=== PATIENT | female | born 1945 | race Caucasian/White ===

== ENCOUNTER 2016-10-12 07:16 | Emergency (ER) | payer BC, OTHER ==
[~2016-10-12] VITALS: Ht 160 cm; Wt 76.7 kg
[~2016-10-12 07:16] MED LIST: CALC-354 PO; CHOL100010 PO; DEXT1TAB15 PO; DPH/ PO; ESCI10TA17 PO; HYDR0.5T PO; HYDR10TA52 PO; IMD/2 PO; IPRA1AER2 INH; IRON INFUSIONS IV; LEVO150T PO; LIDO5DIS10 TOP; LISI-729 PO; MISCCAP80 PO; POTA10TA PO; [UNRECOGNIZED DRUG - OTHER] PO
--- NOTE | 2016-10-12 07:39 | EMERGENCY ROOM VISIT NOTE ---
ED Visit Note First contact with patient: 07:28 I have seen and examined this patient with Anastasia Castro and generally agree with the treatment plan as discussed. Problem List Medical Problems: (1) Abdominal hernia Status: Chronic (2) Romain's disease Status: Chronic (3) Asthma Status: Chronic (4) Benign hypertension Status: Chronic (5) Bilateral cellulitis of lower leg Status: Chronic (6) CELLULITIS NOS Status: Chronic (7) ILEOSTOMY STATUS Status: Chronic (8) Lymphedema of left lower extremity Status: Chronic (9) Lymphedema of right lower extremity Status: Chronic (10) MINERALOCORTICOID DEFICIENCY Status: Chronic Current/Historical Medications Scheduled Calcium Carbonate-Cholecalcife (Caltrate 600+D), 1 TAB PO BID Cholecalciferol (Vitamin D), 2,000 INTER.UNIT PO Q12 Dextroamphetamine Sulfate (Dextroamphetamine Sulfate), 10 MG PO TID Escitalopram (Lexapro), 20 MG PO QPM Escitalopram (Lexapro), 10 MG PO QAM Hydrocortisone (Cortef), 20 MG PO QAM Hydrocortisone (Cortef), 10 MG PO QPM Hydroxychloroquine Sulfate (Plaquenil), 400 MG PO HS Ipratropium-Albuterol (Combivent Respimat), 1 PUFFS INH QID L-Methylfolate W/ Vitamin B6-V (Foltx), 1 TAB PO DAILY Levothyroxine Sodium (Synthroid), 175 MCG PO QAM Lidocaine (Lidoderm Patch 5% Patch), 2 PATCH TOP DAILY Lisinopril (Zestril), Unknown Dose PO DAILY Potassium Chloride (K-Tabs), 20 MEQ PO BID Probiotic Product (Probiotic), 1 CAP PO DAILY [IV iron infusions], Unknown Dose IV WK Scheduled PRN Diphenoxylate W/ Atropine (Lomotil), 1-2 TAB PO 4-6 X PRN for Diarrhea Loperamide Hcl (Imodium), 4 MG PO TID PRN for Diarrhea Allergies Coded Allergies: Sulfa Antibiotics (Verified Allergy, Mild, RASH, 01/29/16) UNKNOWN IF THIS IS TO ANITBIOTICS OR OTHER SULFA Clavulanic Acid (Verified Adverse Reaction, Intermediate, nausea & vomiting, 01/29/16) Amoxicillin (Verified Adverse Reaction, Mild, gi upset, 02/10/16) Erythromycin (Verified Adverse Reaction, Mild, gi upset, 02/10/16) Vital Signs Date Time Temp Pulse Resp B/P Pulse Ox O2 Delivery O2 Flow Rate FiO2 10/12/16 07:23 36.5 97 17 147/64 100 Room Air Departure Information Referrals Con Tapia M.D. (PCP) Patient Instructions My [facility]
[2016-10-12] MEDS ORDERED: LISI-725 PO (08:15)
[2016-10-12] MEDS ORDERED: LEVO150T PO (08:15)
[2016-10-12] MEDS ORDERED: HYDR200T5 PO (08:15)
[2016-10-12] MEDS ORDERED: LEVO175T PO (08:15)
[2016-10-12 08:24] LABS: BASO % 0.5 %; BASO ABS # 0.03 K/uL (0-0.2); COMPLETE YES; HEMATOCRIT 30.4 % (37-47); IG% 0.2 %; LYMPH % 31.5 %; LYMPH ABS # 1.78 K/uL (1.2-3.4); MEAN CELL VOLUME 91.3 fL (80-100); MEAN CORPUSCULAR HEMOGLOBIN 31.2 pg (25-34); MEAN CORPUSCULAR HGB CONC 34.2 g/dl (32-36); MEAN PLATELET VOLUME 8.8 fL (7.4-10.4); MONO % 13.5 %; NEUT % 51.3 %; PLATELET COUNT 459 K/uL (130-400); RED BLOOD COUNT 3.33 M/uL (4.2-5.4); WHITE BLOOD COUNT 5.65 K/uL (4.8-10.8)
[2016-10-12] MEDS ORDERED: MoRPHine SULFATE 4 MG/ML 1 ML CARP\\VIAL IV STA (08:29)
[2016-10-12 08:44] LABS: ALT/SGPT 32 U/L (12-78); BLOOD UREA NITROGEN 17 mg/dl (7-18); BUN/CREATININE RATIO 20.1 (10-20); CALCIUM 9.7 mg/dl (8.5-10.1); CARBON DIOXIDE 23 mmol/L (21-32); CHLORIDE 103 mmol/L (98-107); CREATININE 0.84 mg/dl (0.60-1.20); GLUCOSE 95 mg/dl (70-99); POTASSIUM 4.1 mmol/L (3.5-5.1); SODIUM 139 mmol/L (136-145)
[2016-10-12 08:47] LABS: ALB/GLOB RATIO 1.1 (0.9-2); ALKALINE PHOSPHATASE 107 U/L (45-117); AST/SGOT 27 U/L (15-37)
--- NOTE | 2016-10-12 09:07 | DIAGNOSTIC IMAGING REPORT ---
LEFT KNEE 3 VIEWS CLINICAL HISTORY: left leg pain, previous TKA COMPARISON STUDY: Left knee 03/03/2015. FINDINGS: There is a left total knee arthroplasty. There is significant periprosthetic lucency surrounding the tibial component as well as mild collapse of the tibial component. The tibial component and adjacent to 8 mm of periprosthetic lucency. There is also medial angulation of the distal tip of the tibial component. Findings are consistent with loosening/hardware failure. The femoral and patellar components are intact. Small joint effusion. No fracture or dislocation. IMPRESSION: Abnormal periprosthetic lucency surrounding the tibial component which demonstrates mild collapse and medial angulation. This is consistent with loosening/hardware failure. Electronically signed by: Shree Arriaga M.D. 10/12/2016 9:05 AM Dictated Date/Time: 10/12/2016 9:03 AM
--- NOTE | 2016-10-12 09:47 | DIAGNOSTIC IMAGING REPORT ---
ULTRASOUND LEFT VENOUS DOPP LOWER EXT UNILAT CLINICAL HISTORY: Left leg pain, swelling COMPARISON STUDY: No previous studies for comparison. FINDINGS: Real-time and color flow Doppler imaging were performed. Flow was seen within the femoral, popliteal and calf veins with no intraluminal thrombus demonstrated. The saphenous vein is patent. IMPRESSION: No evidence of left lower extremity DVT. Electronically signed by: Parviz Valdez M.D. 10/12/2016 9:45 AM Dictated Date/Time: 10/12/2016 9:45 AM
[2016-10-12 10:05] VITALS: TEMP 36.7
[2016-10-12 10:55] VITALS: Ht 160 cm; Wt 76.7 kg
[2016-10-12] MEDS ORDERED: DAPTOmycin IV 300 MG in SODIUM CHLORIDE 0.9% 50ML 50 ML IV STA (11:02)
--- NOTE | 2016-10-12 12:17 | EMERGENCY ROOM VISIT NOTE ---
History First contact with patient: 07:28 Chief Complaint: LEG PAIN,LEG INJURY Stated Complaint: SEVERE LEFT LEG PAIN,KNEE SWOLLEN,POSS CELLULITIS History of Present Illness The patient is a 70 year old female who presents to the Emergency Room with complaints of severe left leg pain as well as swelling of both of her legs. The patient reports that she had a left knee replacement by Dr. Mercado several years ago. She states that over the past 3 weeks, she has had severe pain in her left leg with walking. She states that she has also had several bulging varicose veins which were not there before. She rates this discomfort a 5/10. She states that she has previously followed up with orthopedics but they told her that her leg was normal. The patient also notes that she has redness of bilateral lower extremities. She states that she has had cellulitis of both of her legs multiple times. She typically sees Dr. Soto for this. She states that last time she had cellulitis, she had one dose of an IV antibiotic which worked very well for her. She does have a history of lymphedema and wears compression stockings. She states that her legs are more swollen than normal. She denies any numbness or weakness in the legs. She denies any fevers/chills. She notes a history of scleroderma, adrenal insufficiency, anemia, and GI surgeries. Review of Systems A complete 10-point Review of Systems was discussed with the patient, with pertinent positives and negatives listed in the History of Present Illness. All remaining Review of Systems questions can be considered negative unless otherwise specified. Past Medical/Surgical History Medical Problems: (1) Abdominal hernia (2) Silvis's disease (3) Asthma (4) Benign hypertension (5) Bilateral cellulitis of lower leg (6) CELLULITIS NOS (7) ILEOSTOMY STATUS (8) Lymphedema of left lower extremity (9) Lymphedema of right lower extremity (10) MINERALOCORTICOID DEFICIENCY (11) PNA (pneumonia) (12) Small bowel obstruction Surgical Problems: (1) S/P knee replacement Family History FH: heart disease Social History Smoking Status: Former Smoker Alcohol Use: none Drug Use: none Marital Status: Housing Status: lives with family Occupation Status: unemployed Current/Historical Medications Scheduled Calcium Carbonate-Cholecalcife (Caltrate 600+D), 1 TAB PO BID Cholecalciferol (Vitamin D), 2,000 UNITS PO BID Dextroamphetamine Sulfate (Dextroamphetamine Sulfate), 10 MG PO TID Escitalopram (Lexapro), 20 MG PO QPM Escitalopram (Lexapro), 10 MG PO QAM Hydrocortisone (Cortef), 20 MG PO DAILY@0800 Hydrocortisone (Cortef), 10 MG PO DAILY@1600 Hydroxychloroquine Sulfate (Plaquenil), 400 MG PO HS Ipratropium-Albuterol (Combivent Respimat), 1 PUFFS INH QID L-Methylfolate W/ Vitamin B6-V (Foltx), 1 TAB PO DAILY Levothyroxine Sodium (Synthroid), 150 MCG PO Q2D Levothyroxine Sodium (Synthroid), 175 MCG PO Q2D Lisinopril (Zestril), 20 MG PO DAILY Potassium Chloride (K-Tabs), 20 MEQ PO BID Scheduled PRN Diphenoxylate W/ Atropine (Lomotil), 1-2 TAB PO 4-6 X PRN for Diarrhea Loperamide Hcl (Imodium), 4 MG PO TID PRN for Diarrhea Oxycodone Ir (Roxicodone Ir), 1-2 TAB PO Q4H PRN for Pain Allergies Coded Allergies: Sulfa Antibiotics (Verified Allergy, Mild, RASH, 10/12/16) UNKNOWN IF THIS IS TO ANITBIOTICS OR OTHER SULFA Clavulanic Acid (Verified Adverse Reaction, Intermediate, nausea & vomiting, 10/12/16) Amoxicillin (Verified Adverse Reaction, Mild, gi upset, 10/12/16) Erythromycin (Verified Adverse Reaction, Mild, gi upset, 10/12/16) Physical Exam Vital Signs Date Time Temp Pulse Resp B/P Pulse Ox O2 Delivery O2 Flow Rate FiO2 10/12/16 13:01 78 20 127/79 98 10/12/16 11:50 93 20 134/82 95 Room Air 10/12/16 10:05 36.7 98 18 135/77 100 Room Air 10/12/16 08:35 84 16 167/90 95 Room Air 10/12/16 07:23 36.5 97 17 147/64 100 Room Air Pain Rating (0-10): 3.0 Physical Exam VITALS: Vitals are noted on the nurse's note and reviewed by myself. Vital signs stable. GENERAL: This is a 70-year-old female, in no acute distress, nondiaphoretic, well-developed well-nourished. HEART: Regular rate and rhythm without murmurs gallops or rubs. LUNGS: Clear to auscultation bilaterally without wheezes, rales or rhonchi. MUSCULOSKELETAL: There is tenderness to palpation of the left knee diffusely. There is valgus angulation of the left knee. EXTREMITIES: Nonpitting edema noted to bilateral lower extremities. There is erythema which extends from bilateral ankles to just below the bilateral knees. Dorsalis pedis pulses are intact bilaterally. No abscesses or drainage. NEURO: Patient was alert and oriented to person place and time. Normal sensation to light and sharp touch. Medical Decision & Procedures ER Provider Diagnostic Interpretation: LEFT KNEE 3 VIEWS IMPRESSION: Abnormal periprosthetic lucency surrounding the tibial component which demonstrates mild collapse and medial angulation. This is consistent with loosening/hardware failure. ULTRASOUND LEFT VENOUS DOPP LOWER EXT UNILAT IMPRESSION: No evidence of left lower extremity DVT. Laboratory Results 10/12/16 08:05 Red Blood Count 3.33, Mean Corpuscular Volume 91.3, Mean Corpuscular Hemoglobin 31.2, Mean Corpuscular Hemoglobin Concent 34.2, Mean Platelet Volume 8.8, Neutrophils (%) (Auto) 51.3, Lymphocytes (%) (Auto) 31.5, Monocytes (%) (Auto) 13.5, Eosinophils (%) (Auto) 3.0, Basophils (%) (Auto) 0.5, Neutrophils # (Auto ) 2.90, Lymphocytes # (Auto) 1.78, Monocytes # (Auto) 0.76, Eosinophils # (Auto ) 0.17, Basophils # (Auto) 0.03 10/12/16 08:05 Test 10/12/16 08:05 White Blood Count 5.65 K/uL (4.8-10.8) Red Blood Count 3.33 M/uL (4.2-5.4) Hemoglobin 10.4 g/dL (12.0-16.0) Hematocrit 30.4 % (37-47) Mean Corpuscular Volume 91.3 fL (80-100) Mean Corpuscular Hemoglobin 31.2 pg (25-34) Mean Corpuscular Hemoglobin Concent 34.2 g/dl (32-36) Platelet Count 459 K/uL (130-400) Mean Platelet Volume 8.8 fL (7.4-10.4) Neutrophils (%) (Auto) 51.3 % Lymphocytes (%) (Auto) 31.5 % Monocytes (%) (Auto) 13.5 % Eosinophils (%) (Auto) 3.0 % Basophils (%) (Auto) 0.5 % Neutrophils # (Auto) 2.90 K/uL (1.4-6.5) Lymphocytes # (Auto) 1.78 K/uL (1.2-3.4) Monocytes # (Auto) 0.76 K/uL (0.11-0.59) Eosinophils # (Auto) 0.17 K/uL (0-0.5) Basophils # (Auto) 0.03 K/uL (0-0.2) RDW Standard Deviation 45.6 fL (36.4-46.3) RDW Coefficient of Variation 13.6 % (11.5-14.5) Immature Granulocyte % (Auto) 0.2 % Immature Granulocyte # (Auto) 0.01 K/uL (0.00-0.02) Anion Gap 13.0 mmol/L (3-11) Estimated GFR () 82.2 Estimated GFR (Non- 70.9 BUN/Creatinine Ratio 20.1 (10-20) Calcium Level 9.7 mg/dl (8.5-10.1) Total Bilirubin 0.4 mg/dl (0.2-1) Aspartate Amino Transf (AST/SGOT) 27 U/L (15-37) Alanine Aminotransferase (ALT/SGPT) 32 U/L (12-78) Alkaline Phosphatase 107 U/L (45-117) Total Protein 6.8 gm/dl (6.4-8.2) Albumin 3.6 gm/dl (3.4-5.0) Globulin 3.2 gm/dl (2.5-4.0) Albumin/Globulin Ratio 1.1 (0.9-2) Medications Administered Medications (Trade) Dose Ordered Sig/Hector Route Start Time Stop Time Status Last Admin Dose Admin Morphine Sulfate 4 mg 4 mg NOW STAT IV 10/12/16 08:29 10/12/16 08:30 DC 10/12/16 08:34 4 MG Daptomycin/Sodium Chloride (Cubicin IV/Nss 50ml) 56 ml @ 112 mls/hr NOW STAT IV 10/12/16 11:02 10/12/16 11:31 DC 10/12/16 11:57 112 MLS/HR Medical Decision Differential diagnosis includes cellulitis, DVT, superficial thrombus, hardware failure, osteomyelitis, hardware infection, among others. The patient was evaluated as above. Labs were drawn and IV access was obtained. Imaging studies were performed and read by radiology as above. The patient was medicated with 4 mg morphine IV for pain. The patient was reassessed multiple times during their stay in the emergency department and remained in stable condition. The patient is a 70-year-old female who presents today complaining of left leg pain and possible lower extremity cellulitis. Labs revealed no leukocytosis or concerning anemia. Left leg showing ultrasound revealed no evidence of DVT or thrombus. X-ray of the left knee did show evidence of hardware failure. Clinically, the patient does have a bilateral lower extremity cellulitis. I initially recommended that the patient be admitted because I felt it would be very difficult for the patient to ambulate at home. I discussed this with the patient and she adamantly refused admission. I then spoke with Dr. Soto about setting up outpatient therapy for the patient and he recommended giving 1 dose of daptomycin and having the patient follow-up in the office tomorrow for further treatment. I also spoke with CLARISA Larsen with [facility] regarding the patient. He recommended having the patient use a walker and minimal weight bearing until follow-up with orthopedics within the next few days. The patient was agreeable to this. She did initially request Dalvance instead of the daptomycin. I explained to her that this is what Dr. Soto had recommended and I did not feel it was appropriate to give her Dalvance. The ED pharmacist also discussed this with the patient. The patient requested something for pain and was given a short course of OxyIR until she is able to follow up with orthopedics. She will follow-up with orthopedics and Dr. Soto and will return sooner for any worsening symptoms. Based on the patient's presentation, lab results, and imaging studies, I feel the patient is stable for outpatient treatment. Discharge instructions were reviewed with the patient. The patient verbalized understanding of my assessment and treatment plan and was discharged home in good condition. Impression Primary Impression: Bilateral lower leg cellulitis Additional Impression: Hardware failure Departure Information Dispostion Home / Self-Care Condition GOOD Prescriptions Oxycodone Ir (Roxicodone Ir) 5 Mg Tab 1-2 TAB PO Q4H Y for Pain, #15 TAB For Initial Treatment Prov: Anastasia Castro ., CLARISA 10/12/16 Referrals Con Tapia M.D. (PCP) Abdulaziz Soto MD, Kenneth, M.D. Patient Instructions My [facility] Additional Instructions Call Dr. Soto today to schedule follow-up for treatment of your cellulitis. Call Dr. Mercado's office today to schedule follow-up in the office today or tomorrow. Use your walker to keep as much weight off the leg as possible. Return to the emergency department with any new/concerning symptoms or worsening of your current condition. Problem Qualifiers
[2016-10-12] MEDS ORDERED: OXYC1TAB3 PO (12:57)
[2016-10-12 13:01] VITALS: BP 127/79; PULSE 78; O2SAT 98
[2016-10-28] MEDS ORDERED: NF656 (14:05)
[2016-10-28] MEDS ORDERED: FLR/1 PO (14:06)
[2016-11-17] MEDS ORDERED: [UNRECOGNIZED DRUG - OTHER] (14:21)
[2016-11-17] MEDS ORDERED: IRON SUPPLEMENT (14:21)
[2016-11-17] MEDS ORDERED: POLYCAP4 PO (14:29)
[2016-11-17] MEDS ORDERED: ZOLE5INJ (14:30)
[2016-11-17] MEDS ORDERED: ESCI1TAB10 PO (15:03)
[2016-11-17] MEDS ORDERED: ESCI10TA17 PO (15:03)
[2016-12-28] MEDS ORDERED: CHOL200010 PO (08:15)
[2017-05-05] MEDS ORDERED: HYDR200T5 PO (13:34)
[2017-05-05] MEDS ORDERED: AMLO2.5T PO (13:35)
[2017-05-05] MEDS ORDERED: nasal spray (13:35)
== END 2016-10-12 13:05 | disposition home or self-care (01) ==
LOC: C.EDB 07:19
DX: L03.115 Cellulitis of right lower limb (principal); L03.116 Cellulitis of left lower limb; T84.498A Other mechanical complication of other internal orthopedic devices, implants and grafts, initial encounter; Y83.1 Surgical operation with implant of artificial internal device as the cause of abnormal reaction of the patient, or of later complication, without mention of misadventure at the time of the procedure; I89.0 Lymphedema, not elsewhere classified; I10 Essential (primary) hypertension; Z96.659 Presence of unspecified artificial knee joint; Z87.891 Personal history of nicotine dependence; Z79.899 Other long term (current) drug therapy

== ENCOUNTER 2016-11-22 11:56 | Inpatient (IN) | payer BC, OTHER ==
[2016-11-17 14:30] VITALS: BMI 29.0
--- NOTE | 2016-11-17 15:36 | PAT Medication Instructions ---
Service Date Nov 17, 2016. Current Home Medication List Calcium Carbonate-Cholecalcife (Caltrate 600+D), 1 TAB PO BID Cholecalciferol (Vitamin D), 4,000 UNITS PO BID Dextroamphetamine Sulfate (Dextroamphetamine Sulfate), 10 MG PO TID Diphenoxylate W/ Atropine (Lomotil), 1-2 TAB PO 4-6 X PRN for Diarrhea Escitalopram (Lexapro), 10 MG PO QPM Escitalopram Oxalate (Lexapro), 20 MG PO QAM Fludrocortisone Acetate (Florinef), 0.1 MG PO QAM Hydrocortisone (Cortef), 20 MG PO DAILY@0800 Hydrocortisone (Cortef), 10 MG PO DAILY@1600 Hydroxychloroquine Sulfate (Plaquenil), 400 MG PO HS Ipratropium-Albuterol (Combivent Respimat), 1 PUFFS INH QID PRN for ASTHMA L-Methylfolate W/ Vitamin B6-V (Foltx), 1 TAB PO QAM Levothyroxine Sodium (Synthroid), 150 MCG PO Q2D Levothyroxine Sodium (Synthroid), 175 MCG PO Q2D Lidocaine (Lidoderm Patch 5%), DIRECTED Lisinopril (Zestril), 20 MG PO QAM Loperamide Hcl (Imodium), 4 MG PO TID PRN for Diarrhea Oxycodone Ir (Roxicodone Ir), 1-2 TAB PO Q4H PRN for Pain Polysaccharide Iron Complex (Iferex 150), 1 CAP PO QAM Potassium Chloride (K-Tabs), 20 MEQ PO BID Zoledronic Acid (Reclast), Unknown Dose [Fish And Flax Oil ], Unknown Dose Medication Instructions For Your Scheduled Surgery Lidocaine (Lidoderm Patch 5%), DIRECTED (continue as usual) Zoledronic Acid (Reclast), Unknown Dose (has not started yet) - Hold the following medications 2 weeks prior to surgery: Fish And Flax Oil Unknown Dose - Hold the following medications the morning of surgery: Potassium Chloride (K-Tabs), 20 MEQ PO BID Polysaccharide Iron Complex (Iferex 150), 1 CAP PO QAM Loperamide Hcl (Imodium), 4 MG PO TID PRN for Diarrhea Lisinopril (Zestril), 20 MG PO QAM L-Methylfolate W/ Vitamin B6-V (Foltx), 1 TAB PO QAM Diphenoxylate W/ Atropine (Lomotil), 1-2 TAB PO 4-6 X PRN for Diarrhea Dextroamphetamine Sulfate (Dextroamphetamine Sulfate), 10 MG PO TID Calcium Carbonate-Cholecalcife (Caltrate 600+D), 1 TAB PO BID Cholecalciferol (Vitamin D), 4,000 UNITS PO BID - Take the following medications the morning of surgery with a sip of water: Oxycodone Ir (Roxicodone Ir), 1-2 TAB PO Q4H PRN for Pain (can take up to four hours prior to surgery if needed) Levothyroxine Sodium (Synthroid) Ipratropium-Albuterol (Combivent Respimat), 1 PUFFS INH QID PRN for ASTHMA Hydrocortisone (Cortef), 20 MG PO DAILY@0800 Fludrocortisone Acetate (Florinef), 0.1 MG PO QAM Escitalopram Oxalate (Lexapro), 20 MG PO QAM - Take the following medications as scheduled the night before surgery: Potassium Chloride (K-Tabs), 20 MEQ PO BID Oxycodone Ir (Roxicodone Ir), 1-2 TAB PO Q4H PRN for Pain Loperamide Hcl (Imodium), 4 MG PO TID PRN for Diarrhea Ipratropium-Albuterol (Combivent Respimat), 1 PUFFS INH QID PRN for ASTHMA Hydroxychloroquine Sulfate (Plaquenil), 400 MG PO HS Hydrocortisone (Cortef), 10 MG PO DAILY@1600 Escitalopram (Lexapro), 10 MG PO QPM Diphenoxylate W/ Atropine (Lomotil), 1-2 TAB PO 4-6 X PRN for Diarrhea Dextroamphetamine Sulfate (Dextroamphetamine Sulfate), 10 MG PO TID Calcium Carbonate-Cholecalcife (Caltrate 600+D), 1 TAB PO BID Cholecalciferol (Vitamin D), 4,000 UNITS PO BID If you have any questions please call us at [phone] or [phone] ( Nika) or [phone]
[2016-11-17 16:19] LABS: PARTIAL THROMBOPLASTIN RATIO 1.1; PROTHROMBIN TIME (PATIENT) 10.2 SECONDS (9.0-12.0)
[2016-11-17 16:20] LABS: URINE APPEARANCE CLEAR (CLEAR); URINE BILIRUBIN NEG (NEG); URINE COLOR YELLOW; URINE NITRITE NEG (NEG); URINE SPECIFIC GRAVITY 1.011 (1.000-1.030); UROBILINOGEN NEG (NEG); ZZUR CULT IF INDIC CLEAN CATCH NO
[2016-11-17 16:21] LABS: MANUAL MICROSCOPIC REQUIRED? NO; REVIEW REQ? NO
--- NOTE | 2016-11-17 16:30 | DIAGNOSTIC IMAGING REPORT ---
CHEST PREADMISSION(PA/LAT) CLINICAL HISTORY: PAT COMPARISON STUDY: 10/05/2015 FINDINGS: The bones soft tissues and hemidiaphragms are normal. The cardiomediastinal silhouette is normal. The lungs are clear. The pulmonary vasculature is normal. IMPRESSION: Negative chest. Electronically signed by: Harvinder Clemons M.D. 11/17/2016 4:29 PM Dictated Date/Time: 11/17/2016 4:28 PM
--- NOTE | 2016-11-19 09:05 | HISTORY & PHYSICAL EXAMINATION ---
DATE OF ADMISSION: 11/22/2016 CHIEF COMPLAINT: Painful left total knee replacement. HISTORY OF PRESENT ILLNESS: Ms. Zuluaga is a 70-year-old female who had her knee replaced in February of [address] Mercado. The patient's knee has been painful for quite some time. She has noticed over the last 6 months that she has started to develop a deformity. Just in recent weeks the patient has noticed the pain is becoming more severe and just this past week she twisted the knee and is now unable to bear weight. On x-ray it is evident that her tibial component is loose and now positioned with potential fracture of the medial aspect of the tibia. She is now scheduled for a semi-urgent left knee revision. PAST MEDICAL HISTORY: Hypertension, history of cellulitis recurrent, asthma controlled, adrenal suppression, spinal stenosis, rheumatoid arthritis, thyroid disease, mitral valve prolapse, left lower extremity edema, irritable bowel syndrome and peripheral vascular disease. PAST SURGICAL HISTORY: Colostomy, left TKA, hernia repair, cholecystectomy, hysterectomy, oophorectomy and laparotomy. SOCIAL HISTORY: The patient denies alcohol or tobacco use. She lives in a split level home. She is and retired. FAMILY HISTORY: Negative for DVT. MEDICATIONS: Lisinopril 20 mg, Lexapro 10 mg a.m., 20 mg p.m., Cortef 20 mg q.a.m. and 10 mg p.m., Klor-Con 2 to 10 mg q.a.m., iron tablet daily, Synthroid 150 mcg and 175 mcg alternating, Plaquenil 200 mg 2 tablets daily, Lomotil 2.5 mg daily, fludrocortisone 0.1 mg tablet daily, Roxicodone p.r.n. ALLERGIES: SULFA. REVIEW OF SYSTEMS: See HPI. Ten other systems reviewed, all negative. PHYSICAL EXAMINATION: VITAL SIGNS: Height is 5 foot 4, weight 175 pounds. BMI is 30. GENERAL: This is a well-developed, well-nourished female who is alert and oriented x3. Mood and affect are appropriate. HEAD, EYES, EARS, NOSE, AND THROAT: Normocephalic, atraumatic. Mucous membranes are moist and intact. NECK: Supple without lymphadenopathy. HEART: Regular rate and rhythm without murmurs, rubs or gallops. LUNGS: Clear to auscultation without wheezes or rhonchi. ABDOMEN: Soft and nontender. EXTREMITIES: No ecchymosis, redness or warmth at the knee. She does have some recurrent cellulitis which is resolving. She does have chronic lymphedema of the lower extremities so she has chronic swelling. Knee has a valgus deformity. She is moderately tender over the medial aspect of the tibia and joint line. Range of motion is minimal due to pain. She is neurovascularly intact. X-RAY EXAMINATION: AP and lateral views show total knee replacement. The tibial component is malpositioned with an impending fracture of the medial tibia. There is obvious lucency of the components. IMPRESSION: Painful left total knee replacement with aseptic loosening of the tibia. PLAN: The patient will be admitted for a left total knee revision, hopefully just the tibial component. The patient will require steroid prep preoperatively. She is not sure if she is going to go home or go to a facility postoperatively for therapy. Her PCP is Dr. Tapia of [facility].
[2016-11-22] VITALS (8 sets, daily range): BP systolic 154–205; BP diastolic 75–98; PULSE 66–93; TEMP 36.4–36.7; O2SAT 91–100; Ht 162.6 cm; Wt 78.3 kg
[~2016-11-22] VITALS: Ht 162.6 cm; Wt 78.3 kg
[2016-11-22] MEDS: TRANEXAMIC ACID INJ 1,000 MG in SODIUM CHLORIDE 0.9% 100ML 100 ML IV SCH ×2 (06:30→13:39)
[~2016-11-22 11:56] MED LIST changes: +ACETAMINOPHEN 500 MG TAB PO SCH; +BUPIVACAINE 0.25% 30 ML VIAL ONE; +BUPIVACAINE 0.5 % 5 MG/1 ML PF 10ML VIAL ONE; +CEFAZOLIN 2000 MG/60 ML D5W 60 ML IV SCH; -CHOL100010 PO; +CeleBREX 200 MG CAP PO SCH; +ESCI1TAB10 PO; +EpHEDrine SULFATE 50MG/5ML SYR ONE; +FAMOTIDINE 20 MG TAB PO SCH; +FENTANYL CITRATE INJ 50 MCG/1 ML 2 ML VIAL ONE; +FLR/1 PO; +GABAPENTIN 300 MG CAP PO SCH; -HYDR0.5T PO; +HYDR200T5 PO; +HYDROCORTISONE IV 100 MG in SYRINGE 0 ML IV SCH; -IRON INFUSIONS IV; +LACTATED RINGER'S 1000ML 1,000 ML IV SCH; +LEVO175T PO; -LIDO5DIS10 TOP; +LIDOCAINE HCL 2% 2 ML VIAL (20MG/ML) ONE; +LISI-725 PO; -LISI-729 PO; +METOCLOPRAMIDE HCL 10 MG TAB PO SCH; +MIDAZOLAM HCL 1 MG/ML 2ML VIAL ONE; -MISCCAP80 PO; +NF656; +OXYC1TAB3 PO; +OXYCODONE HCL 10 MG TABCR (OXYCONTIN) PO SCH; +PHENYLEPHRINE 100MCG/ML 5ML SYR ONE; +POLYCAP4 PO; +POLYMYXIN B SULFATE 100,000 UNITS in NSS 100ML IR SCH; +PROPOFOL IV EMULSION 10 MG/ML 20 ML VIAL IV ONE; +ROPIVACAINE 5MG/ML 30 ML 150 MG, BUPIVACAINE/EPINEPHR 0.5% MPF 30 ML, KETOROLAC TROMETH... INFIL SCH; +VANCOMYCIN INJ 1,200 MG in SODIUM CHLORIDE 0.9% 250ML 250 ML IV SCH; +VANCOMYCIN INJ 400 MG in NSS 100ML IR SCH; +ZOLE5INJ; +[UNRECOGNIZED DRUG - OTHER]
--- NOTE | 2016-11-22 12:03 | History & Physical Bridge Note ---
H&P Re-Evaluation Bridge Note: I have examined the patient, reviewed the History & Physical and in the interval since the performance of the History & Physical I have noted the following changes of clinical significance: No changes noted
[2016-11-22] MEDS ORDERED: ORTHO JOINT ANESTHETIC ONE (12:41)
[2016-11-22] MEDS ORDERED: BUPIVACAINE/EPINEPHRINE 0.25% 1:200,000 30 ML VIAL ONE (12:42)
[2016-11-22] MEDS ORDERED: POVIDONE-IODINE OP SOLN 30 ML BTL ONE (12:42)
[2016-11-22] MEDS ORDERED: BACITRACIN 50000 UNIT VIAL ONE (12:42)
[2016-11-22] MEDS ORDERED: VANCOMYCIN HCL 1000MG/20ML VIAL ONE (13:44)
[2016-11-22] MEDS ORDERED: HYDROmorphone INJ 2 MG/ML SYR/VIAL IV PRN (14:30)
[2016-11-22] MEDS ORDERED: ATROPINE SULFATE 0.1 MG/ML 5ML SYR IV PRN (14:30)
[2016-11-22] MEDS ORDERED: PHENYLEPHRINE 100MCG/ML 5ML SYR IV PRN (14:30)
[2016-11-22] MEDS ORDERED: KETOROLAC TROMETHAMINE 30 MG/ML VIAL IV. PRN (14:30)
[2016-11-22] MEDS ORDERED: ONDANSETRON INJ 2 MG/ML 2 ML VIAL IV PRN ×2 (14:30→16:00)
[2016-11-22] MEDS ORDERED: EpHEDrine SULFATE INJ 50 MG/ML AMP IV PRN (14:30)
[2016-11-22] MEDS ORDERED: SCOPOLAMINE 1.5 MG TDSY TD ONE (14:33)
--- NOTE | 2016-11-22 15:51 | [facility] Post Operative Brief Note ---
Immediate Operative Summary Operative Date Nov 22, 2016. Pre-Operative Diagnosis Painful left total knee replacement with aseptic loosening of the tibia. Post-Operative Diagnosis Painful left total knee replacement with aseptic loosening of the tibia. Procedure(s) Performed Left Total Knee Revision Tibia Surgeon Dr. Lionel Mercado Compliance Testing Analyst Surgeon(s) Chava Caceres PA-C Estimated Blood Loss 5ml Findings severe loosening very poor bone quality Specimens A: Left knee explanted hardware B: Left knee bone and tissue Complication(s) None Disposition Recovery Room / PACU
[2016-11-22] MEDS ORDERED: DIPHENOXYLATE/ATROPINE 2.5/0.025MG TAB PO PRN (16:00)
[2016-11-22] MEDS ORDERED: ALUMINUM/MAGNESIUM/SIMETH (MAALOX MAX) 30 ML UDC PO PRN (16:00)
[2016-11-22] MEDS ORDERED: SOD PHOSPHATE/SOD BIPHOSPHATE ENEMA 132 ML BTL PR PRN (16:00)
[2016-11-22] MEDS ORDERED: MAGNESIUM HYDROXIDE SUSP 30 ML UDC PO PRN (16:00)
[2016-11-22] MEDS ORDERED: METOCLOPRAMIDE HCL INJ 5 MG/ML 2 ML VIAL IV PRN (16:00)
[2016-11-22] MEDS ORDERED: LOPERAMIDE HCL 2 MG CAP PO PRN (16:00)
[2016-11-22] MEDS ORDERED: MoRPHine SULFATE 2 MG/ML CARP IV PRN (16:00)
[2016-11-22] MEDS ORDERED: ZOLPIDEM TARTRATE 5 MG TAB PO PRN (16:00)
[2016-11-22] MEDS ORDERED: DiphenhydrAMINE HCL 50 MG/ML VIAL IV PRN (16:00)
[2016-11-22] MEDS ORDERED: IPRATROPIUM BROMIDE/ALBUTEROL respimat INH INH PRN (16:00)
[2016-11-22] MEDS ORDERED: BISACODYL 10 MG SUPP PR PRN (16:00)
--- NOTE | 2016-11-22 16:37 | OPERATIVE REPORT ---
DATE OF OPERATION: 11/22/2016 PREOPERATIVE DIAGNOSES: 1. Severe aseptic loosening of left tibial component with collapse of tibial plateau. 2. Severe steroid-dependent inflammatory arthritis. PROCEDURE: Exploration and revision of tibial tray and tibial insert. SURGEON: Dr. Lionel Mercado. ACADEMIC PHYSICIAN: KAVEH Larsen. ANESTHESIA: Spinal. TOURNIQUET TIME: 90 minutes at 300 mmHg. CULTURES: Aerobic and anaerobic. DRAINS: Hemovac x2. COMPLICATIONS: None. INDICATION FOR PROCEDURE: This patient is a 71-year-old female who is almost 2 years status post uncomplicated left total knee. Her knee replacement performed in February of 2015. She had severe changes throughout and a relatively poor bone quality from steroid-dependent rheumatoid arthritis and also being on Plaquenil and other remittive agents. She had done well, but over the last 2-3 months, developed increased pain. X-ray showed evidence of collapse with deformity of the knee and severe subsidence of the tibial component. Preoperative workup was negative. DESCRIPTION OF PROCEDURE: Following satisfactory spinal, the patient was supine. A tourniquet was placed. The lower extremity was prepared with ChloraPrep and draped sterilely. Following a surgical timeout, the tourniquet was inflated. A midline incision was made with a median parapatellar arthrotomy. A small amount of bloody fluid was encountered, which was sent for Gram stain and culture, Gram stain showing rare WBCs. A complete synovectomy in the superior medial and lateral gutters was performed. The old polyethylene was removed. The tibia was subluxated forward. The tibial tray had obviously subsided significantly on both sides, more so on the lateral side. Tibial component was removed with virtually no effort. The ultrasonic cement removal system was used to make sure the canal was centralized and once it was identified and cement removed, canal was prepared with the IM reaming system. This allowed neutral resection of the tibia. A trial reduction with a Legion size 3 baseplate with a 10-mm ring augment, 6-mm offset, and 14 x 120 stem was used. A size 15 constrained insert showed the best tensioning and stability on the collateral ligaments, full extension with actually slight hyperextension and flexion to about 115-120 degrees. The patella tracked well. All trial components were removed. A cement restriction plug was placed. The cement, Simplex G with 2 grams of vancomycin powder was then mixed and 3rd generation cement technique was used to cement the tibial stem and the polyethylene was placed. A Betadine soak was performed. After 5 minutes, the Betadine was irrigated. Two drains were placed. The arthrotomy was closed with #2 FiberWire and reinforced with #1 Vicryl throughout, subcutaneous tissues with 1 and 2-0 Vicryl, and the skin with surgical bandar. A surface wound VAC was applied. The tourniquet was deflated. The patient was returned to her bed in stable condition. I attest to the content of the Intraoperative Record and any orders documented therein. Any exceptions are noted below. MTDD
--- NOTE | 2016-11-22 16:54 | DIAGNOSTIC IMAGING REPORT ---
LEFT KNEE 1 OR 2 VIEWS ROUTINE CLINICAL HISTORY: Revision left knee arthroplasty. COMPARISON: Left knee radiograph October 12, 2016. FINDINGS: These images demonstrate a revision left knee arthroplasty with a new tibial component. The hardware is intact. Lucency within the medial metadiaphysis of the left tibia with callus formation may reflect a healing fracture. There is no distal left femoral fracture. There are no unexpected radiopaque foreign bodies. Surgical drains and skin bandar are present. IMPRESSION: 1. Status post revision of the tibial component of the left knee arthroplasty. No unexpected radiopaque foreign bodies. 2. Lucency with apparent callus formation of the proximal left tibia, as described above. While age indeterminate, this favors a subacute transverse fracture at site of lucency shown on exam of October 12, 2016. Electronically signed by: Donavon Manrique M.D. 11/22/2016 4:53 PM Dictated Date/Time: 11/22/2016 4:46 PM
--- NOTE | 2016-11-22 17:18 | Anesthesiology Progress Note ---
Anesthesia Post Op Note Date & Time Nov 22, 2016 at 17:18 Vital Signs Pain Intensity: 0 Vital Signs Past 12 Hours Date Time Temp Pulse Resp B/P Pulse Ox O2 Delivery O2 Flow Rate FiO2 11/22/16 17:15 68 16 149/84 97 Nasal Cannula 2 11/22/16 17:05 36.8 88 16 145/80 97 Nasal Cannula 2 11/22/16 16:55 89 16 137/82 99 Mask 10 11/22/16 16:45 91 16 136/77 100 Mask 10 11/22/16 16:35 36.8 74 16 115/75 97 Mask 10 11/22/16 12:19 36.7 84 18 154/85 95 Room Air Notes Mental Status: alert / awake / arousable, participated in evaluation Pt Amnestic to Procedure: Yes Nausea / Vomiting: adequately controlled Pain: adequately controlled Airway Patency, RR, SpO2: stable & adequate BP & HR: stable & adequate Hydration State: stable & adequate Neuraxial Anesthesia: was administered, sensory block is resolving Anesthetic Complications: no major complications apparent
[2016-11-22] MEDS ORDERED: HYDROCORTISONE IV 100 MG in SYRINGE 0 ML IV ONE (18:30)
[2016-11-22] MEDS: D5W AND 1/2NSS + 20MEQ KCL 1,000 ML IV SCH (18:46)
[2016-11-22] MEDS: OXYCODONE HCL IR 5 MG TAB (IMMEDIATE RELEASE) PO PRN (19:33)
[2016-11-22] MEDS: ASPIRIN 81 MG ECTAB PO SCH (20:59)
[2016-11-22] MEDS: OXYCODONE HCL 10 MG TABCR (OXYCONTIN) PO SCH (20:59)
[2016-11-22] MEDS: POTASSIUM CHLORIDE 10 MEQ TABCR PO SCH (21:00)
[2016-11-22] MEDS: CALCIUM 600MG + VIT D 400 IU TAB PO SCH (21:00)
[2016-11-22] MEDS: CHOLECALCIFEROL 1000 INTER.UNIT TAB PO SCH (21:00)
[2016-11-22] MEDS: ESCITALOPRAM OXALATE 10 MG TAB PO SCH (21:00)
[2016-11-22] MEDS ORDERED: NURSING VERBAL MED ORDER ONE ×2 (21:15→21:30)
[2016-11-22] MEDS ORDERED: KETOROLAC TROMETHAMINE 15 MG/ML VIAL IV. STA (21:34)
[2016-11-22] MEDS ORDERED: MoRPHine SULFATE 4 MG/ML 1 ML CARP\\VIAL IV PRN (21:45)
[2016-11-22] MEDS: HydrALAZINE HCL 20 MG/ML VIAL IV. PRN (21:55)
[2016-11-22] MEDS: ACETAMINOPHEN 500 MG TAB PO SCH (22:15)
[2016-11-22] MEDS: CEFAZOLIN IV 2,000 MG in DEXTROSE 5% 50ML 50 ML IV SCH (22:15)
--- NOTE | 2016-11-22 22:53 | Medical Consult ---
Consultation Date of Consultation: Nov 22, 2016. Attending Physician: Lionel Mercado M.D. Reason for Consultation: HTN History of Present Illness 71 y/o F w/Hx OA, HTN, adrenal insufficiency. Admitted to the orthopedic service for revision of a L TKA. The medical service is consulted due to poorly controlled BP in the hospital. Past Medical/Surgical History 1) OA 2) HTN 3) Adrenal insufficiency 4) Asthma 5) Hypothyroidism 6) SBO 7) Pts chart states Hx of RA - she states that she had a (+) RF on labs previously but has not been officially diagnosed with RA Surgical history 1) Cholecystectomy 2) Hysterectomy 3) Oophorectomy 4) L TKA 5) Colectomy Family History FH: heart disease Social History Smoking Status: Former Smoker Drug Use: none Marital Status: Housing Status: lives with family Occupation Status: unemployed Allergies Coded Allergies: Sulfa Antibiotics (Verified Allergy, Mild, RASH, 11/22/16) UNKNOWN IF THIS IS TO ANITBIOTICS OR OTHER SULFA Clavulanic Acid (Verified Adverse Reaction, Intermediate, nausea & vomiting, 11/17/16) Amoxicillin (Verified Adverse Reaction, Mild, gi upset, 11/17/16) Erythromycin (Verified Adverse Reaction, Mild, gi upset, 11/17/16) Current Inpatient Medications Current Inpatient Medications Medications (Trade) Dose Ordered Sig/Hector Route Start Time Stop Time Status Last Admin Dose Admin Lactated Ringer's 1,000 ml @ 15 mls/hr Q24H IV 11/22/16 06:00 11/23/16 05:59 Potassium Chloride/Dextrose/ Sod Cl 1,000 ml @ 100 mls/hr Q10H IV 11/22/16 18:00 11/23/16 17:59 11/22/16 18:46 100 MLS/HR Cefazolin Sodium/ Dextrose (Ancef Iv/D5 50ml) 60 ml @ 100 mls/hr Q8 IV 11/22/16 22:00 11/23/16 06:35 11/22/16 22:15 100 MLS/HR Oxycodone HCl (Roxicodone Immediate Rel Tab) 1 TABLET FOR PAIN RATING... Q4H PRN PO 11/22/16 16:00 12/06/16 15:59 11/22/16 19:33 10 MG Oxycodone HCl (Oxycontin Tab) 10 mg Q12 PO 11/22/16 21:00 12/06/16 20:59 11/22/16 20:59 10 MG Acetaminophen (Tylenol Tab) 1,000 mg Q8 PO 11/22/16 22:00 12/22/16 21:59 11/22/16 22:15 1,000 MG Magnesium Hydroxide (Milk Of Magnesia Susp) 30 ml Q6H PRN PO 11/22/16 16:00 12/22/16 15:59 Bisacodyl (Dulcolax Supp) 10 mg DAILY PRN AK 11/22/16 16:00 12/22/16 15:59 Sodium Biphosphate/ Sodium Phosphate (Fleet Enema) 132 ml DAILY PRN AK 11/22/16 16:00 12/22/16 15:59 Diphenhydramine HCl (Benadryl Cap) 25 mg Q8H PRN PO 11/22/16 16:00 12/22/16 15:59 Diphenhydramine HCl (Benadryl Inj) 25 mg Q8H PRN IV 11/22/16 16:00 12/22/16 15:59 Al Hydrox/Mg Hydrox/Simethicone (Maalox Max Susp) 15 ml Q4H PRN PO 11/22/16 16:00 12/22/16 15:59 Zolpidem Tartrate (Ambien Tab) 5 mg HSZ PRN PO 11/22/16 16:00 12/22/16 15:59 Multivitamins (Multivitamin Tab) 1 tab QAM PO 11/23/16 09:00 12/23/16 08:59 Ondansetron HCl (Zofran Inj) 4 mg Q6H PRN IV 11/22/16 16:00 12/22/16 15:59 Metoclopramide HCl (Reglan Inj) 10 mg Q6H PRN IV 11/22/16 16:00 12/22/16 15:59 Pantoprazole Sodium (Protonix Tab) 40 mg QAM PO 11/23/16 09:00 12/23/16 08:59 Tramadol HCl (Ultram Tab) 1 tablet for pain rating... Q4H PRN PO 11/22/16 16:00 12/22/16 15:59 Aspirin (Ecotrin Tab) 81 mg BID PO 11/22/16 21:00 12/22/16 20:59 11/22/16 20:59 81 MG Diphenoxylate HCl/ Atropine (Lomotil Tab) 2 tab Q4HWA PRN PO 11/22/16 16:00 12/22/16 15:59 Escitalopram Oxalate (Lexapro Tab) 10 mg QPM PO 11/22/16 21:00 12/22/16 20:59 11/22/16 21:00 10 MG Escitalopram Oxalate (Lexapro Tab) 20 mg QAM PO 11/23/16 09:00 12/23/16 08:59 Fludrocortisone Acetate (Florinef Tab) 0.1 mg QAM PO 11/23/16 09:00 12/23/16 08:59 Hydrocortisone (Cortef Tab) 20 mg BID PO 11/23/16 09:00 12/23/16 08:59 Albuterol/ Ipratropium (Combivent Respimat Inh) 1 puffs QID PRN INH 11/22/16 16:00 12/22/16 15:59 Levothyroxine Sodium (Synthroid Tab) 150 mcg Q2D@0700 PO 11/24/16 07:00 12/24/16 06:59 Levothyroxine Sodium (Synthroid Tab) 175 mcg Q2D@0700 PO 11/23/16 07:00 12/23/16 06:59 Lisinopril (Zestril Tab) 20 mg QAM PO 11/23/16 09:00 12/23/16 08:59 Loperamide HCl (Imodium Cap) 4 mg TID PRN PO 11/22/16 16:00 12/22/16 15:59 Polysaccharide Iron Complex (Niferex-150 w/ Vit C Cap) 150 mg QAM PO 11/23/16 09:00 12/23/16 08:59 Calcium/Vitamin D (Caltrate Plus Tab) 1 tab BID PO 11/22/16 21:00 12/22/16 20:59 Cholecalciferol (Vitamin D Tab) 4,000 inter.unit BID PO 11/22/16 21:00 12/22/16 20:59 11/22/16 21:00 4,000 INTER.UNIT Miscellaneous Information (Order Awaiting Action) 1 ea QS N/A 11/23/16 00:00 12/23/16 00:00 Potassium Chloride 20 meq 20 meq BID PO 11/22/16 21:00 12/22/16 20:59 11/22/16 21:00 20 MEQ Hydrocortisone Sodium Succinate/ Syringe (Solu-Cortef IV/ Syringe) 2 ml @ 4 mls/min TODAY@0100 IV 11/23/16 01:00 11/23/16 01:01 Morphine Sulfate (MoRPHine SULFATE INJ) 3 mg Q2HWA PRN IV 11/22/16 21:45 12/06/16 21:44 Hydralazine HCl (HydrALAZINE INJ) 5 mg Q8H PRN IV. 11/22/16 21:45 12/22/16 21:44 11/22/16 21:55 5 MG Review of Systems Constitutional: No chills, No fever, No sweats Eyes: No eye pain, No worsening of vision ENT: No hearing loss, No nasal symptoms, No unusual epistaxis Respiratory: No cough, No sputum, No wheezing Cardiovascular: No PND, No chest pain, No orthopnea Abdomen: No nausea, No pain, No vomiting Musculoskeletal: + joint pain, + muscle pain, + problem reported (Mild pain at surgical site) Genitourinary - Female: No dysuria, No urinary frequency, No urinary urgency Neurologic: No memory loss, No paralysis, No weakness Psychiatric: No depression symptoms Endocrine: + fatigue Hematologic / Lymphatic: No abnormal bleeding/bruising Integumentary: No rash Allergic / Immunologic: No environmental allergies Physical Exam Date Time Temp Pulse Resp B/P Pulse Ox O2 Delivery O2 Flow Rate FiO2 11/22/16 21:50 66 192/95 11/22/16 20:35 36.5 68 16 205/98 98 Nasal Cannula 2.0 11/22/16 19:35 36.6 69 16 178/88 99 Nasal Cannula 2.0 11/22/16 18:35 36.5 93 18 174/94 100 Nasal Cannula 2.5 11/22/16 18:05 36.5 74 18 168/92 98 Nasal Cannula 2.5 11/22/16 17:25 36.8 68 16 162/88 97 Nasal Cannula 2 11/22/16 17:15 68 16 149/84 97 Nasal Cannula 2 11/22/16 17:05 36.8 88 16 145/80 97 Nasal Cannula 2 11/22/16 16:55 89 16 137/82 99 Mask 10 11/22/16 16:45 91 16 136/77 100 Mask 10 11/22/16 16:35 36.8 74 16 115/75 97 Mask 10 11/22/16 15:35 91 Nasal Cannula 2.0 11/22/16 15:35 91 Nasal Cannula 2.0 11/22/16 12:19 36.7 84 18 154/85 95 Room Air General Appearance: WD/WN, no apparent distress Head: normocephalic, atraumatic Eyes: normal inspection, EOMI ENT: normal ENT inspection, hearing grossly normal, TMs normal, pharynx normal , + nasal congestion Neck: supple, no JVD Respiratory/Chest: chest non-tender, lungs clear, normal breath sounds, no respiratory distress, no accessory muscle use Cardiovascular: regular rate, rhythm, no edema, no gallop, + systolic murmur Abdomen/GI: normal bowel sounds, non tender, soft Back: normal inspection, no CVA tenderness, no muscle spasm Extremities/Musculoskelatal: no calf tenderness, + pedal edema Neurologic/Psych: phone triage specialist II-XII nml as tested, no motor/sensory deficits, alert, normal mood/affect, normal reflexes, oriented x 3, + pertinent finding (She is somnolent however when awakened she is AAO x 3 ) Skin: normal color, warm/dry, no rash Laboratory Results Last 24 Hours Test 11/22/16 12:55 Hepatitis C Antibody Screen NEG Assessment & Plan 71 y/o F w/Hx RA, HTN, adrenal insufficiency. Admitted to the orthopedic service for revision of a L TKA. The medical service is consulted due to poorly controlled BP in the hospital. 1) Post-op - appears to be recovering well - pain is controlled and no C/O N/V - f/u per ortho 2) HTN - May be due to pain, IVF during procedures, interruption in regular med schedule or stress dosing of steroids. We have placed her on Q8H PRN Hydralazine as this is likely a temp effect - med will F/U Am to trend BP and determine if this may be a longer term issue - pt to resume Lisinopril AM. 3) Adrenal insufficiency - stress dose steroids provided. 4) Hypothyroid - cont Synthroid Total time for this consult including chart revirew - review of orthopedic admit /procedure note - labs, vitals - discussion with pt - 29 min
[2016-11-23] VITALS (8 sets, daily range): BP systolic 113–166; BP diastolic 56–151; PULSE 57–91; TEMP 36.5–37.1; O2SAT 95–100
[2016-11-23] MEDS ORDERED: HYDROCORTISONE IV 100 MG in SYRINGE 0 ML IV SCH (01:00)
[2016-11-23] MEDS: D5W AND 1/2NSS + 20MEQ KCL 1,000 ML IV SCH ×2 (04:07→14:03)
[2016-11-23] MEDS: CEFAZOLIN IV 2,000 MG in DEXTROSE 5% 50ML 50 ML IV SCH (05:42)
[2016-11-23] MEDS: ACETAMINOPHEN 500 MG TAB PO SCH ×3 (05:44→20:39)
[2016-11-23 06:19] LABS: HEMATOCRIT 32.1 % (37-47); MEAN CELL VOLUME 92.2 fL (80-100); MEAN CORPUSCULAR HGB CONC 33.6 g/dl (32-36); MEAN PLATELET VOLUME 8.9 fL (7.4-10.4); PLATELET COUNT 478 K/uL (130-400); RED BLOOD COUNT 3.48 M/uL (4.2-5.4); WHITE BLOOD COUNT 9.22 K/uL (4.8-10.8)
[2016-11-23 06:58] LABS: BUN/CREATININE RATIO 20.3 (10-20); CALCIUM 8.5 mg/dl (8.5-10.1); POTASSIUM 4.1 mmol/L (3.5-5.1)
[2016-11-23] MEDS ORDERED: LEVOTHYROXINE 175 MCG TAB PO SCH (07:00)
[2016-11-23] MEDS: LISINOPRIL 20 MG TAB PO SCH (07:26)
[2016-11-23] MEDS: HydrALAZINE HCL 20 MG/ML VIAL IV. PRN (07:28)
--- NOTE | 2016-11-23 08:07 | Anesthesiology Progress Note ---
Anesthesia Post Op Note Date & Time Nov 23, 2016 at 08:07 Vital Signs Vital Signs Past 12 Hours Date Time Temp Pulse Resp B/P Pulse Ox O2 Delivery O2 Flow Rate FiO2 11/23/16 07:46 Nasal Cannula 3.0 11/23/16 07:17 36.5 62 12 166/86 100 11/23/16 03:50 36.5 57 16 142/69 100 Nasal Cannula 2.0 11/22/16 23:50 36.5 75 16 158/87 94 Nasal Cannula 2.0 11/22/16 23:50 Nasal Cannula 2.0 11/22/16 21:50 66 192/95 11/22/16 20:35 36.5 68 16 205/98 98 Nasal Cannula 2.0 Notes Mental Status: alert / awake / arousable, participated in evaluation Pt Amnestic to Procedure: Yes Nausea / Vomiting: adequately controlled Pain: adequately controlled Airway Patency, RR, SpO2: stable & adequate BP & HR: stable & adequate Hydration State: stable & adequate Neuraxial Anesthesia: sensory block resolved Anesthetic Complications: no major complications apparent
--- NOTE | 2016-11-23 08:24 | Orthopedic Progress Note ---
Orthopedic Progress Note Date of Service Nov 23, 2016. Subjective Post OP Day: 1 Reports: feeling well, Denies: SOB, calf pain, chest pain, light headedness, nausea / vomiting Additional Notes: Painful last night but much better this AM. States that her pain is rated at a 2 or 3. Objective calves soft nontender, N/V intact, dressing C/D/I, A&O x3, toes mobile, hemovac drainage (50ml latest shift; 150ml to date) Date Time Temp Pulse Resp B/P Pulse Ox O2 Delivery O2 Flow Rate FiO2 11/23/16 07:46 Nasal Cannula 3.0 11/23/16 07:17 36.5 62 12 166/86 100 11/23/16 03:50 36.5 57 16 142/69 100 Nasal Cannula 2.0 11/22/16 23:50 36.5 75 16 158/87 94 Nasal Cannula 2.0 11/22/16 23:50 Nasal Cannula 2.0 11/22/16 21:50 66 192/95 11/22/16 20:35 36.5 68 16 205/98 98 Nasal Cannula 2.0 11/22/16 19:35 36.6 69 16 178/88 99 Nasal Cannula 2.0 11/22/16 18:35 36.5 93 18 174/94 100 Nasal Cannula 2.5 11/22/16 18:05 36.5 74 18 168/92 98 Nasal Cannula 2.5 11/22/16 17:25 36.8 68 16 162/88 97 Nasal Cannula 2 11/22/16 17:15 68 16 149/84 97 Nasal Cannula 2 11/22/16 17:05 36.8 88 16 145/80 97 Nasal Cannula 2 11/22/16 16:55 89 16 137/82 99 Mask 10 11/22/16 16:45 91 16 136/77 100 Mask 10 11/22/16 16:35 36.8 74 16 115/75 97 Mask 10 11/22/16 15:35 91 Nasal Cannula 2.0 11/22/16 15:35 91 Nasal Cannula 2.0 11/22/16 12:19 36.7 84 18 154/85 95 Room Air Laboratory Results 24 Hours: Test 11/23/16 06:06 Hematocrit 32.1 % Hemoglobin 10.8 g/dL Assessment & Plan Assessment: POD 1 s/p Left Revision Tibial component Hypertension, history of cellulitis recurrent, asthma controlled, adrenal suppression, spinal stenosis, rheumatoid arthritis, thyroid disease, mitral valve prolapse, left lower extremity edema, irritable bowel syndrome and peripheral vascular disease Plan: Hypertensive overnight. MN[facility] consulted PT/OT Noted lucency on post op xray is healing fx noted before in the office. Plan for WBAT today and OOB as manuel. Inhouse Planning Pain Management: Oxycontin, Ultram, Morphine, PO Tylenol, Oxy IR DVT Prophylaxis: TEDs, SCDs, ASA
[2016-11-23] MEDS: HYDROCORTISONE 10 MG TAB PO SCH ×2 (08:55→20:39)
[2016-11-23] MEDS: CHOLECALCIFEROL 1000 INTER.UNIT TAB PO SCH ×2 (08:55→20:39)
[2016-11-23] MEDS: PANTOprazole SOD 40 MG TAB PO SCH (08:55)
[2016-11-23] MEDS: ESCITALOPRAM OXALATE 20 MG TAB PO SCH (08:55)
[2016-11-23] MEDS: POTASSIUM CHLORIDE 10 MEQ TABCR PO SCH ×2 (08:56→20:40)
[2016-11-23] MEDS: FLUDROCORTISONE ACETATE 0.1 MG TAB PO SCH (08:56)
[2016-11-23] MEDS: MULTIVITAMIN TAB PO SCH (08:56)
[2016-11-23] MEDS: ASPIRIN 81 MG ECTAB PO SCH ×2 (08:57→20:38)
[2016-11-23] MEDS: CALCIUM 600MG + VIT D 400 IU TAB PO SCH ×2 (08:57→20:39)
[2016-11-23] MEDS: IRON COMPLEX POLYSACCHARIDE W/VIT C 150 MG CAP PO SCH (08:57)
[2016-11-23] MEDS ORDERED: METHYLFOLATE PO SCH (09:00)
[2016-11-23] MEDS ORDERED: VITAMIN B6 V PO SCH (09:00)
[2016-11-23] MEDS: OXYCODONE HCL IR 5 MG TAB (IMMEDIATE RELEASE) PO PRN ×2 (09:02→18:09)
[2016-11-23] MEDS: OXYCODONE HCL 10 MG TABCR (OXYCONTIN) PO SCH ×2 (09:03→20:39)
[2016-11-23] MEDS: TRAMADOL HCL 50 MG TAB PO PRN ×2 (12:36→19:12)
--- NOTE | 2016-11-23 17:13 | Hospitalist Progress Note ---
Hospitalist Progress Note Date of Service Nov 23, 2016. Subjective Pt evaluation today including: conversation w/ patient, physical exam, chart review, lab review, review of studies, review of inpatient medication list Patient had no acute issues Denies any headache, SOB or chest pain Constitutional: No fever Eyes: No worsening of vision ENT: No hearing loss, No nasal symptoms, No sore throat Respiratory: No cough, No shortness of breath, No wheezing Cardiovascular: No chest pain Abdomen: No diarrhea, No pain, No vomiting Musculoskeletal: No joint pain Female : No dysuria Neurologic: No memory loss Psychiatric: No depression symptoms Skin: No rash Objective Vital Signs Date Time Temp Pulse Resp B/P Pulse Ox O2 Delivery O2 Flow Rate FiO2 11/23/16 16:24 37.1 91 17 123/61 97 Room Air 11/23/16 11:34 36.5 86 16 113/68 99 Room Air 11/23/16 10:20 76 99 11/23/16 09:37 116/74 11/23/16 07:46 Nasal Cannula 3.0 11/23/16 07:17 36.5 62 12 166/86 100 11/23/16 03:50 36.5 57 16 142/69 100 Nasal Cannula 2.0 11/22/16 23:50 36.5 75 16 158/87 94 Nasal Cannula 2.0 11/22/16 23:50 Nasal Cannula 2.0 11/22/16 21:50 66 192/95 11/22/16 20:35 36.5 68 16 205/98 98 Nasal Cannula 2.0 11/22/16 19:35 36.6 69 16 178/88 99 Nasal Cannula 2.0 11/22/16 18:35 36.5 93 18 174/94 100 Nasal Cannula 2.5 11/22/16 18:05 36.5 74 18 168/92 98 Nasal Cannula 2.5 11/22/16 17:25 36.8 68 16 162/88 97 Nasal Cannula 2 11/22/16 17:15 68 16 149/84 97 Nasal Cannula 2 Physical Exam General Appearance: WD/WN, no apparent distress Eyes: normal inspection ENT: normal ENT inspection Neck: supple, no adenopathy Respiratory/Chest: chest non-tender, lungs clear Cardiovascular: regular rate, rhythm, no edema Abdomen: normal bowel sounds, non tender, soft Extremities: normal range of motion, non-tender Neurologic/Psychiatric: porcelain finish sprayer II-XII nml as tested, no motor/sensory deficits, alert, oriented x 3 Skin: normal color, warm/dry, no rash Lymphatic: no adenopathy Laboratory Results Last 24 Hours Test 11/23/16 06:06 White Blood Count 9.22 K/uL Red Blood Count 3.48 M/uL Hemoglobin 10.8 g/dL Hematocrit 32.1 % Mean Corpuscular Volume 92.2 fL Mean Corpuscular Hemoglobin 31.0 pg Mean Corpuscular Hemoglobin Concent 33.6 g/dl RDW Standard Deviation 47.4 fL RDW Coefficient of Variation 14.1 % Platelet Count 478 K/uL Mean Platelet Volume 8.9 fL Sodium Level 138 mmol/L Potassium Level 4.1 mmol/L Chloride Level 104 mmol/L Carbon Dioxide Level 25 mmol/L Anion Gap 9.0 mmol/L Blood Urea Nitrogen 20 mg/dl Creatinine 1.00 mg/dl Est Creatinine Clear Calc Drug Dose 53.0 ml/min Estimated GFR () 66.1 Estimated GFR (Non- 57.0 BUN/Creatinine Ratio 20.3 Random Glucose 149 mg/dl Calcium Level 8.5 mg/dl Assessment and Plan 71 y/o F w/Hx RA, HTN, adrenal insufficiency. Admitted to the orthopedic service for revision of a L TKA. The medical service is consulted due to poorly controlled BP in the hospital. Hypertension - controlled - continue home dose of lisinopril 20 mg daily POD#1 s/p L TKA - pain control - PT/OT Adrenal insufficiency - continue hydrocortisone and Florinef Hypothyroid - cont Synthroid
[2016-11-23] MEDS: ESCITALOPRAM OXALATE 10 MG TAB PO SCH (20:38)
[2016-11-24] MEDS: ACETAMINOPHEN 500 MG TAB PO SCH (05:17)
[2016-11-24] MEDS: OXYCODONE HCL IR 5 MG TAB (IMMEDIATE RELEASE) PO PRN ×2 (05:19→09:29)
[2016-11-24] MEDS: TRAMADOL HCL 50 MG TAB PO PRN ×2 (06:44→11:58)
[2016-11-24] MEDS ORDERED: LEVOTHYROXINE 150 MCG TAB PO SCH (07:00)
--- NOTE | 2016-11-24 07:48 | Orthopedic Progress Note ---
Orthopedic Progress Note Date of Service Nov 24, 2016. Subjective Post OP Day: 2 Reports: feeling well, pain controlled w PO medications, Denies: calf pain, complaints Objective calves soft nontender, N/V intact, dressing C/D/I, A&O x3, toes mobile LYMPHEDEMA WELL CONTROLLED Date Time Temp Pulse Resp B/P Pulse Ox O2 Delivery O2 Flow Rate FiO2 11/23/16 23:45 Room Air 11/23/16 23:09 36.7 76 18 165/81 98 Room Air 11/23/16 20:12 36.6 67 16 /151 95 Room Air 11/23/16 16:24 37.1 91 17 123/61 97 Room Air 11/23/16 15:30 Room Air 11/23/16 11:34 36.5 86 16 113/68 99 Room Air 11/23/16 10:20 76 99 11/23/16 09:37 116/74 Assessment & Plan Assessment: POD 2 s/p Left Revision Tibial component Hypertension, history of cellulitis recurrent, asthma controlled, adrenal suppression, spinal stenosis, rheumatoid arthritis, thyroid disease, mitral valve prolapse, left lower extremity edema, irritable bowel syndrome and peripheral vascular disease Plan: Hypertensive overnight. [facility] consulted PT/OT Noted lucency on post op xray is healing fx noted before in the office. Plan for WBAT today and OOB as manuel. Inhouse Planning Pain Management: Oxycontin, Ultram, Morphine, PO Tylenol, Oxy IR DVT Prophylaxis: TEDs, SCDs, ASA Discharge Planning Discharge Planning: home with home health Pain Management: Oxycontin, PO Tylenol, Oxy IR DVT Prophylaxis: TEDs, ASA
[2016-11-24 07:51] VITALS: BP 166/90; PULSE 66; TEMP 36.6; O2SAT 98
[2016-11-24 08:20] VITALS: O2SAT 98
[2016-11-24] MEDS: PANTOprazole SOD 40 MG TAB PO SCH (08:33)
[2016-11-24] MEDS: FLUDROCORTISONE ACETATE 0.1 MG TAB PO SCH (08:33)
[2016-11-24] MEDS: MULTIVITAMIN TAB PO SCH (08:33)
[2016-11-24] MEDS: LISINOPRIL 20 MG TAB PO SCH (08:33)
[2016-11-24] MEDS: HYDROCORTISONE 10 MG TAB PO SCH (08:33)
[2016-11-24] MEDS: ASPIRIN 81 MG ECTAB PO SCH (08:33)
[2016-11-24] MEDS: POTASSIUM CHLORIDE 10 MEQ TABCR PO SCH (08:34)
[2016-11-24] MEDS: IRON COMPLEX POLYSACCHARIDE W/VIT C 150 MG CAP PO SCH (08:34)
[2016-11-24] MEDS: CALCIUM 600MG + VIT D 400 IU TAB PO SCH (08:34)
[2016-11-24] MEDS: CHOLECALCIFEROL 1000 INTER.UNIT TAB PO SCH (08:34)
[2016-11-24] MEDS: ESCITALOPRAM OXALATE 20 MG TAB PO SCH (08:34)
[2016-11-24] MEDS ORDERED: ACET-1138 PO (08:36)
[2016-11-24] MEDS ORDERED: OXYC1TAB3 PO (08:36)
[2016-11-24] MEDS ORDERED: MORP-157 PO (08:36)
[2016-11-24] MEDS ORDERED: ONDA8TAB6 PO (08:36)
[2016-11-24] MEDS ORDERED: ASPEC81 PO (08:36)
[2016-11-24] MEDS: OXYCODONE HCL 10 MG TABCR (OXYCONTIN) PO SCH (08:39)
--- NOTE | 2016-11-24 08:40 | Discharge Instructions ---
Discharge Instructions Admission Reason for Admission: Left Knee Mechanical Loosening Of Prosthetic Joint Discharge Discharge Diagnosis / Problem: SP REVISION LEFT TKA Discharge Goals Goal(s): Decrease discomfort, Improve function, Increase independence Activity Recommendations Activity Limitations: per Instructions/Follow-up section . Instructions / Follow-Up Instructions / Follow-Up ACTIVITY RECOMMENDATIONS: SELF CARE INSTRUCTIONS AFTER TOTAL KNEE REPLACEMENT A. You may need to continue a physical therapy program after discharge from the hospital. There are several options available to you. Your doctor will assist you in selecting the best one for you. 1. An out-patient facility 2 to 3 times a week for therapy or home therapy. 2. Continue working on all exercises taught to you in the hospital. Your goals should be to increase bending of your knee to 90 degrees and beyond and to fully straighten your knee. B. You may progress at your own pace from walking with a walker or crutches to a cane; then to no assistive devices. C. Make walking a part of your daily routine. Be up as much as comfortable with rest periods throughout the day. Rest with leg elevation is very important. Use the ice wrap frequently for the first 3-4 weeks. D. There are no restrictions on activities. You may ride in a car, shop, participate in export administrator and all social activities. E. Wear the long elastic stockings (PREMA hose) 20 hours a day for 2 weeks after surgery. They can be removed several times a day for laundering and for a bath. F. You may shower, no tub baths until cleared by your doctor. SPECIAL CARE INSTRUCTIONS: VERY IMPORTANT TO READ AND REVIEW A. There are a few signs you need to watch for after you are home. Call [facility] if you notice any of the followin. Increased severe knee pain. Some pain is expected especially when you exercise. 2. Increased swelling in your leg or knee; pain or swelling of the calf muscle in either lower leg. 3. Any fluid drainage from the incision. 4. Shortness of breath or chest pain. B. Please call [facility] at if you have any concerns or questions about your operation or recovery. The doctor or his nurse will return your call promptly. C. You must take antibiotics before dental work, bladder, bowel or other surgery. Your doctor will provide you with a permanent care to carry describing this precaution. IMPORTANT: * REMEMBER TO TAKE ASPIRIN, 81 MG, TWICE DAILY FOR 4 WEEKS UNLESS OTHERWISE DIRECTED. THIS IS YOUR BLOOD THINNER. * HIGH RISK PATIENTS MAY BE PRESCRIBED A STRONGER BLOOD THINNER. THIS WILL BE PROVIDED AT DISCHARGE. * CALL IF INCREASED PAIN, REDNESS, DRAINAGE OR FEVER GREATER THAT 101. * WEAR PREMA HOSE 20 HOURS PER DAY FOR 2 WEEKS. Prevena- This is a large suction dressing covering your incision. This will help pull any excess drainage from the wound and allow your incision to heal properly. You may shower with this if you can keep the unit outside of the shower. If any bleeding or leakage is noted please call your doctor's office. This will remain on your incision for 7 days and then should be removed. This can be done yourself or by the home nursing staff if applicable. The entire unit is disposable once removed. Once removed, keep incision clean and dry. If redness or drainage is noted, please call your surgeon. FOLLOW UP VISIT: If appointment is not already scheduled: Please call [facility] to make a follow-up appointment for 2 weeks after your surgery at . Current Hospital Diet Patient's current hospital diet: Regular Diet Discharge Diet Recommended Diet: Regular Diet Procedures Procedures Performed: Left Total Knee Revision Tibia Pending Studies Studies pending at discharge: no Medical Emergencies . Who to Call and When: Medical Emergencies: If at any time you feel your situation is an emergency, please call 911 immediately. . Non-Emergent Contact Non-Emergency issues call your: Primary Care Provider . "Provider Documentation" section prepared by Cecelia Medellin. VTE Core Measure Inpt VTE Proph given/why not?: Other Anticoagulation, T.E.DViri Martinez, SCD's [place] Drug Monitoring Program Search Results: patient reviewed within database, no issues identified
[2016-11-24 11:43] VITALS: BP 168/90; PULSE 84; TEMP 36.7; O2SAT 97
[2016-11-24 12:31] VITALS: BP 168/90; PULSE 84; TEMP 36.7; O2SAT 97
--- NOTE | 2016-11-25 15:11 | DISCHARGE SUMMARY ---
DISCHARGE DIAGNOSIS: Painful left total knee replacement with aseptic loosening of tibial component. SECONDARY DIAGNOSES: Hypertension, history of cellulitis, asthma, adrenal suppression, spinal stenosis, rheumatoid arthritis, thyroid disease, mitral valve prolapse, left lower extremity lymphedema, irritable bowel syndrome, peripheral vascular disease. CONSULTS: None. COMPLICATIONS: None. PROCEDURES: Left total knee revision tibia prosthesis by Dr. Jorge Mercado on 11/22/2016. BRIEF HISTORY: As dictated in history and physical. HOSPITAL SUMMARY: The patient was admitted on the above-noted date and had the above-noted surgery performed which he tolerated well. On first postoperative day, the patient was feeling well and had no complaints. She was painful the previous night but was much better that morning. Calves are soft, nontender, neurovascularly intact. Dressings clean, dry and intact. Toes were mobile. Vital signs were stable and blood pressures were fluctuating but she was otherwise progressing. Hemoglobin was 10.8 and she was started on physical therapy protocol and continued on DVT prophylaxis and pain management. Of note, the postoperative x-ray showed a lucency and possible fracture in the left tibia which was actually there prior to the surgery due to her mechanical failure of her tibial prosthesis. By her second postoperative day, she was feeling well and pain was controlled. Calves were soft and nontender, neurovascularly intact. Dressings clean, dry and intact. Toes were mobile. Lymphedema was well controlled. Vital signs continued to be stable. BP continued to fluctuate but she was always running stable and and progressing with her physical therapy and it was felt that she could be discharged to home. For further review, please see chart. LAB AND X-RAY DATA: As per chart. DISCHARGE INSTRUCTIONS: The patient was discharged to home in satisfactory condition on 11/24/2016. DIET: Regular. ACTIVITY: Follow TKA instruction sheets and special care instructions as noted and follow up with Dr. Mercado in 2 weeks. The patient to call for appointment if one has not been made for you. DISCHARGE MEDICATIONS: Acetaminophen 1000 mg p.o. q. 8 hours, aspirin 81 mg p.o. b.i.d., morphine sulfate 15 mg p.o. q. 12 hours, Zofran 8 mg p.o. q. 8 hours p.r.n., and resume home meds as listed.
[2016-12-28] MEDS ORDERED: CHOL200010 PO (08:15)
[2017-05-05] MEDS ORDERED: HYDR200T5 PO (13:34)
[2017-05-05] MEDS ORDERED: AMLO2.5T PO (13:35)
[2017-05-05] MEDS ORDERED: nasal spray (13:35)
== END 2016-11-24 13:51 | disposition home health service (06) | DRG 467 ==
LOC: ENRESERVTM → ENRESERVDT → C.ACU 11:56 → C.3E 12:00
PROVIDERS: ADMIT Orthopaedic Surgery; ATTEND Orthopaedic Surgery
PROC: 0SPD0JZ Removal of Synthetic Substitute from Left Knee Joint, Open Approach (ICD-10-PCS; principal; 2016-11-22 12:30)
PROC: 0SRW0J9 Replacement of Left Knee Joint, Tibial Surface with Synthetic Substitute, Cemented, Open Approach (ICD-10-PCS; principal; 2016-11-22 12:30)
DX: T84.033A Mechanical loosening of internal left knee prosthetic joint, initial encounter (principal); E27.1 Primary adrenocortical insufficiency; M89.8X6 Other specified disorders of bone, lower leg; M06.9 Rheumatoid arthritis, unspecified; I10 Essential (primary) hypertension; E03.9 Hypothyroidism, unspecified; J45.909 Unspecified asthma, uncomplicated; Z79.899 Other long term (current) drug therapy; Z79.52 Long term (current) use of systemic steroids; Z87.891 Personal history of nicotine dependence; Y83.1 Surgical operation with implant of artificial internal device as the cause of abnormal reaction of the patient, or of later complication, without mention of misadventure at the time of the procedure; Y99.8 Other external cause status

== ENCOUNTER 2016-12-28 20:07 | Emergency (ER) | payer BC, OTHER ==
[~2016-12-28] VITALS: Ht 157.5 cm; Wt 78.2 kg
[~2016-12-28 20:07] MED LIST changes: +ACET-1138 PO; -ACETAMINOPHEN 500 MG TAB PO SCH; +ASPEC81 PO; -BUPIVACAINE 0.25% 30 ML VIAL ONE; -BUPIVACAINE 0.5 % 5 MG/1 ML PF 10ML VIAL ONE; -CEFAZOLIN 2000 MG/60 ML D5W 60 ML IV SCH; +CHOL200010 PO; -CeleBREX 200 MG CAP PO SCH; -EpHEDrine SULFATE 50MG/5ML SYR ONE; -FAMOTIDINE 20 MG TAB PO SCH; -FENTANYL CITRATE INJ 50 MCG/1 ML 2 ML VIAL ONE; -GABAPENTIN 300 MG CAP PO SCH; -HYDROCORTISONE IV 100 MG in SYRINGE 0 ML IV SCH; -LACTATED RINGER'S 1000ML 1,000 ML IV SCH; -LIDOCAINE HCL 2% 2 ML VIAL (20MG/ML) ONE; -METOCLOPRAMIDE HCL 10 MG TAB PO SCH; -MIDAZOLAM HCL 1 MG/ML 2ML VIAL ONE; +ONDA8TAB6 PO; -OXYCODONE HCL 10 MG TABCR (OXYCONTIN) PO SCH; -PHENYLEPHRINE 100MCG/ML 5ML SYR ONE; -POLYMYXIN B SULFATE 100,000 UNITS in NSS 100ML IR SCH; -PROPOFOL IV EMULSION 10 MG/ML 20 ML VIAL IV ONE; -ROPIVACAINE 5MG/ML 30 ML 150 MG, BUPIVACAINE/EPINEPHR 0.5% MPF 30 ML, KETOROLAC TROMETH... INFIL SCH; -VANCOMYCIN INJ 1,200 MG in SODIUM CHLORIDE 0.9% 250ML 250 ML IV SCH; -VANCOMYCIN INJ 400 MG in NSS 100ML IR SCH; -ZOLE5INJ
[2016-12-28 20:14] VITALS: TEMP 36.7; Ht 157.5 cm; Wt 78.2 kg
[2016-12-28 20:44] VITALS: O2SAT 99
[2016-12-28 21:26] LABS: BASO % 0.5 %; BASO ABS # 0.03 K/uL (0-0.2); COMPLETE YES; EOS % 5.9 %; HEMATOCRIT 28.3 % (37-47); IG% 0.8 %; LYMPH % 24.1 %; LYMPH ABS # 1.48 K/uL (1.2-3.4); MEAN CORPUSCULAR HEMOGLOBIN 32.2 pg (25-34); MEAN CORPUSCULAR HGB CONC 34.3 g/dl (32-36); MEAN PLATELET VOLUME 8.2 fL (7.4-10.4); NEUT % 60.7 %; PLATELET COUNT 565 K/uL (130-400); RED BLOOD COUNT 3.01 M/uL (4.2-5.4); WHITE BLOOD COUNT 6.15 K/uL (4.8-10.8)
[2016-12-28] MEDS ORDERED: KLOR-CON 10 PO (21:30)
[2016-12-28] MEDS ORDERED: HYDR2TAB2 PO (21:32)
[2016-12-28] MEDS ORDERED: LVNIS40 PO (21:32)
[2016-12-28 21:43] LABS: ALT/SGPT 20 U/L (12-78); BLOOD UREA NITROGEN 10 mg/dl (7-18); BUN/CREATININE RATIO 13.5 (10-20); CALCIUM 8.8 mg/dl (8.5-10.1); CARBON DIOXIDE 30 mmol/L (21-32); CHLORIDE 102 mmol/L (98-107); CREATININE 0.75 mg/dl (0.60-1.20); GLUCOSE 84 mg/dl (70-99); POTASSIUM 3.7 mmol/L (3.5-5.1); SODIUM 139 mmol/L (136-145)
[2016-12-28] MEDS ORDERED: OPTIRAY 320 IV PRN (21:45)
[2016-12-28 21:47] LABS: ALB/GLOB RATIO 0.9 (0.9-2); ALKALINE PHOSPHATASE 121 U/L (45-117); AST/SGOT 18 U/L (15-37)
[2016-12-28 21:56] LABS: PARTIAL THROMBOPLASTIN RATIO 1.1; PROTHROMBIN TIME (PATIENT) 10.2 SECONDS (9.0-12.0)
--- NOTE | 2016-12-28 22:20 | DIAGNOSTIC IMAGING REPORT ---
CHEST CTA for PULMONARY ARTERIES CT DOSE: 289.90 mGy.cm HISTORY: Postoperative chest pain dyspnea TECHNIQUE: Multiaxial CT images of the chest were performed following the intravenous administration of contrast to evaluate the pulmonary arteries. Maximal intensity projection images were also obtained. COMPARISON STUDY: None. FINDINGS: Thoracic aorta shows minimal atherosclerotic change. Pulmonary arterial vasculature enhances appropriately. There are no significant filling defects. There is no significant hilar or mediastinal adenopathy. Pulmonary apices are clear. There is a right basilar parenchymal infiltrate. There is minimal dependent left basilar atelectatic change. There is a fixed hiatal hernia. IMPRESSION: 1. No evidence for pulmonary embolus. 2. Infiltrate right base. 3. Minimal atelectasis left base. 4. Hiatal hernia. Electronically signed by: Harvinder Clemons M.D. 12/28/2016 10:18 PM Dictated Date/Time: 12/28/2016 10:15 PM
[2016-12-28] MEDS ORDERED: LEVOFLOXACIN 750 MG TAB PO STA (22:39)
[2016-12-28] MEDS ORDERED: LEVO750T23 PO (22:58)
[2016-12-28 22:59] VITALS: BP 165/80; PULSE 87; O2SAT 98
--- NOTE | 2016-12-28 22:59 | EMERGENCY ROOM VISIT NOTE ---
History First contact with patient: 20:43 Chief Complaint: SHORTNESS OF BREATH Stated Complaint: SOB, SORE RT UPPER LOBE ON EXERTION- PHYS REFERRED Nursing Triage Summary: SOB since yesterday. Just discharged from [facility] yesterday after peristoma repair. History of Present Illness The patient is a 71 year old female who presents to the Emergency Room with complaints of shortness of breath and right-sided chest pain for the past 2 days. The patient states that she was discharged from [facility] yesterday after a peristomal hernia repair. The patient states that she has had shortness of breath, especially with exertion. She reports she has had pain in the right chest with deep breath. She is concerned about a possible blood clot. She denies any history of blood clots and does not smoke. She also reports that she would like her hemoglobin to be rechecked. She does have chronic anemia and states that her hemoglobin is typically around 10. The patient denies any unusual leg swelling or pain. She denies any fevers/chills, cough, abdominal pain, nausea or vomiting. Review of Systems A complete 10-point Review of Systems was discussed with the patient, with pertinent positives and negatives listed in the History of Present Illness. All remaining Review of Systems questions can be considered negative unless otherwise specified. Past Medical/Surgical History Medical Problems: (1) Abdominal hernia (2) Nilwood's disease (3) Asthma (4) Benign hypertension (5) Bilateral cellulitis of lower leg (6) CELLULITIS NOS (7) ILEOSTOMY STATUS (8) Lymphedema of left lower extremity (9) Lymphedema of right lower extremity (10) MINERALOCORTICOID DEFICIENCY (11) PNA (pneumonia) (12) Small bowel obstruction Surgical Problems: (1) Post-operative state (2) S/P knee replacement Family History FH: heart disease Social History Smoking Status: Former Smoker Alcohol Use: none Drug Use: none Marital Status: Housing Status: lives with family Occupation Status: unemployed Current/Historical Medications Scheduled Acetaminophen (Tylenol Extra Strength), 1,000 MG PO Q8 Calcium Carbonate-Cholecalcife (Caltrate 600+D), 1 TAB PO BID Cholecalciferol (Vitamin D), 2,000 UNITS PO BID Dextroamphetamine Sulfate (Dextroamphetamine Sulfate), 10 MG PO TID Enoxaparin (Enoxaparin Sodium), 40 MG PO DAILY Escitalopram (Lexapro), 10 MG PO QPM Escitalopram Oxalate (Lexapro), 20 MG PO QAM Fludrocortisone Acetate (Florinef), 0.1 MG PO QAM Hydrocortisone (Cortef), 20 MG PO DAILY@0800 Hydrocortisone (Cortef), 10 MG PO DAILY@1600 Hydroxychloroquine Sulfate (Plaquenil), 400 MG PO HS L-Methylfolate W/ Vitamin B6-V (Foltx), 1 TAB PO QAM Levofloxacin (Levaquin), 1 TAB PO DAILY Levothyroxine Sodium (Synthroid), 150 MCG PO Q2D Levothyroxine Sodium (Synthroid), 175 MCG PO Q2D Lidocaine (Lidoderm Patch 5%), DIRECTED Lisinopril (Zestril), 20 MG PO QAM Polysaccharide Iron Complex (Iferex 150), 1 CAP PO QAM Potassium Chloride (K-Tabs), 20 MEQ PO BID [Klor-Con 10], 20 MEQ PO BID Scheduled PRN Diphenoxylate W/ Atropine (Lomotil), 1-2 TAB PO 4-6 X PRN for Diarrhea Hydromorphone Hcl (Hydromorphone Hcl), 2 MG PO Q4 PRN for Pain Ipratropium-Albuterol (Combivent Respimat), 1 PUFFS INH QID PRN for ASTHMA Loperamide Hcl (Imodium), 4 MG PO TID PRN for Diarrhea Ondansetron Hcl (Zofran), 8 MG PO Q8 PRN for Nausea Miscellaneous Medications [Fish And Flax Oil ], Unknown Dose Allergies Coded Allergies: Sulfa Antibiotics (Verified Allergy, Mild, RASH, 12/28/16) UNKNOWN IF THIS IS TO ANITBIOTICS OR OTHER SULFA Clavulanic Acid (Verified Adverse Reaction, Intermediate, nausea & vomiting, 12/28/16) Amoxicillin (Verified Adverse Reaction, Mild, gi upset, 12/28/16) Erythromycin (Verified Adverse Reaction, Mild, gi upset, 12/28/16) Physical Exam Vital Signs Date Time Temp Pulse Resp B/P Pulse Ox O2 Delivery O2 Flow Rate FiO2 12/28/16 22:59 87 16 165/80 98 Room Air 12/28/16 22:15 90 12 170/94 98 12/28/16 21:25 98 Room Air 12/28/16 20:54 88 4/4/17 20:44 99 Room Air 12/28/16 20:14 36.7 96 20 192/99 98 Room Air Physical Exam VITALS: Vitals are noted on the nurse's note and reviewed by myself. Vital signs stable. GENERAL: This is a 71-year-old female, in no acute distress, nondiaphoretic, well-developed well-nourished. SKIN: The skin was without rashes. EARS: External auditory canals clear, tympanic membranes pearly foote without erythema or effusion bilaterally. EYES: Pupils equal round and reactive to light and accommodation. MOUTH: Mucous membranes moist. NECK: Supple without nuchal rigidity. No lymphadenopathy. HEART: Regular rate and rhythm without murmurs gallops or rubs. LUNGS: Clear to auscultation bilaterally without wheezes, rales or rhonchi. No retractions or accessory muscle use. EXTREMITIES: Mild swelling of bilateral lower extremities. No tenderness to palpation. NEURO: Patient was alert and oriented to person place and time. Medical Decision & Procedures ER Provider Diagnostic Interpretation: CHEST CTA for PULMONARY ARTERIES FINDINGS: Thoracic aorta shows minimal atherosclerotic change. Pulmonary arterial vasculature enhances appropriately. There are no significant filling defects. There is no significant hilar or mediastinal adenopathy. Pulmonary apices are clear. There is a right basilar parenchymal infiltrate. There is minimal dependent left basilar atelectatic change. There is a fixed hiatal hernia. IMPRESSION: 1. No evidence for pulmonary embolus. 2. Infiltrate right base. 3. Minimal atelectasis left base. 4. Hiatal hernia. Laboratory Results 12/28/16 21:15 Red Blood Count 3.01, Mean Corpuscular Volume 94.0, Mean Corpuscular Hemoglobin 32.2, Mean Corpuscular Hemoglobin Concent 34.3, Mean Platelet Volume 8.2, Neutrophils (%) (Auto) 60.7, Lymphocytes (%) (Auto) 24.1, Monocytes (%) (Auto) 8.0, Eosinophils (%) (Auto) 5.9, Basophils (%) (Auto) 0.5, Neutrophils # (Auto) 3.74, Lymphocytes # (Auto) 1.48, Monocytes # (Auto) 0.49, Eosinophils # (Auto) 0.36, Basophils # (Auto) 0.03 12/28/16 21:15 Test 12/28/16 21:15 White Blood Count 6.15 K/uL (4.8-10.8) Red Blood Count 3.01 M/uL (4.2-5.4) Hemoglobin 9.7 g/dL (12.0-16.0) Hematocrit 28.3 % (37-47) Mean Corpuscular Volume 94.0 fL (80-100) Mean Corpuscular Hemoglobin 32.2 pg (25-34) Mean Corpuscular Hemoglobin Concent 34.3 g/dl (32-36) Platelet Count 565 K/uL (130-400) Mean Platelet Volume 8.2 fL (7.4-10.4) Neutrophils (%) (Auto) 60.7 % Lymphocytes (%) (Auto) 24.1 % Monocytes (%) (Auto) 8.0 % Eosinophils (%) (Auto) 5.9 % Basophils (%) (Auto) 0.5 % Neutrophils # (Auto) 3.74 K/uL (1.4-6.5) Lymphocytes # (Auto) 1.48 K/uL (1.2-3.4) Monocytes # (Auto) 0.49 K/uL (0.11-0.59) Eosinophils # (Auto) 0.36 K/uL (0-0.5) Basophils # (Auto) 0.03 K/uL (0-0.2) RDW Standard Deviation 49.7 fL (36.4-46.3) RDW Coefficient of Variation 14.6 % (11.5-14.5) Immature Granulocyte % (Auto) 0.8 % Immature Granulocyte # (Auto) 0.05 K/uL (0.00-0.02) Prothrombin Time 10.2 SECONDS (9.0-12.0) Prothromb Time International Ratio 1.0 (0.9-1.1) Activated Partial Thromboplast Time 27.4 SECONDS (21.0-31.0) Partial Thromboplastin Ratio 1.1 Anion Gap 7.0 mmol/L (3-11) Est Creatinine Clear Calc Drug Dose 67.6 ml/min Estimated GFR () 93.6 Estimated GFR (Non- 80.8 BUN/Creatinine Ratio 13.5 (10-20) Calcium Level 8.8 mg/dl (8.5-10.1) Total Bilirubin 0.2 mg/dl (0.2-1) Aspartate Amino Transf (AST/SGOT) 18 U/L (15-37) Alanine Aminotransferase (ALT/SGPT) 20 U/L (12-78) Alkaline Phosphatase 121 U/L (45-117) Troponin I < 0.015 ng/ml (0-0.045) Total Protein 6.7 gm/dl (6.4-8.2) Albumin 3.1 gm/dl (3.4-5.0) Globulin 3.6 gm/dl (2.5-4.0) Albumin/Globulin Ratio 0.9 (0.9-2) Medications Administered Medications (Trade) Dose Ordered Sig/Hector Route Start Time Stop Time Status Last Admin Dose Admin Levofloxacin (Levaquin Tab) 750 mg NOW STAT PO 12/28/16 22:39 12/28/16 22:40 DC 12/28/16 22:39 750 MG ECG Rate (beats per minute): 93 Rhythm: normal sinus Findings: nonspecific-ST abn (Anterior), no ectopy Medical Decision Differential diagnosis includes pulmonary embolism, pneumonia, atelectasis, musculoskeletal pain, among others. The patient was evaluated as above. Labs were drawn and IV access was obtained. Imaging studies were performed and read by radiology as above. The patient was medicated as above. The patient was reassessed multiple times during their stay in the emergency department and remained in stable condition. The patient is a 71-year-old female who presents today complaining of right- sided chest pain and shortness of breath. Labs revealed no leukocytosis, anemia or concerning electrolyte abnormalities. EKG showed a normal sinus rhythm with nonspecific ST abnormality. Troponin was not elevated. As the patient had a recent surgery, I did choose to perform CT scan of the chest rule out pulmonary embolism. This showed no PE, but did show a right lower lobe infiltrate. The patient will be treated with Levaquin. As she is afebrile and vital signs have remained stable, and do feel she is able to be discharged home for outpatient treatment. She was, however encouraged to return immediately for any worsening of her current condition or new/concerning symptoms. Based on the patient's presentation, lab results, and imaging studies, I feel the patient is stable for outpatient treatment. The patient was independently evaluated by Dr. Wilson, ED attending physician, who agreed with my assessment and treatment plan. Discharge instructions were reviewed with the patient. The patient verbalized understanding of my assessment and treatment plan and was discharged home in good condition. Impression Primary Impression: Right lower lobe pneumonia Departure Information Dispostion Home / Self-Care Condition GOOD Prescriptions Levofloxacin (LEVAQUIN) 750 Mg Tab 1 TAB PO DAILY for 6 Days, #6 TAB Prov: Anastasia Castro .CLARISA 12/28/16 Referrals Con Tapia M.D. (PCP) Patient Instructions My [facility] Additional Instructions You were prescribed Levaquin to be taken as prescribed. This is an antibiotic. All antibiotics have the potential to cause diarrhea. Stop this medication and contact a medical provider if you were to develop any significant adverse side effects including: wheezing, shortness of breath, passing out, vomiting, or a diffuse rash. Always take antibiotics as directed and COMPLETE the ENTIRE course regardless of the improvement of your symptoms. Use your albuterol inhaler as needed. Follow-up with your primary care provider this week for a recheck. Return for worsening shortness of breath, worsening pain, fevers or any other new/concerning symptoms. Problem Qualifiers Primary Impression: Right lower lobe pneumonia Pneumonia type: due to unspecified organism Qualified Codes: J18.1 - Lobar pneumonia, unspecified organism
[2016-12-28] MEDS ORDERED: LEVOFLOXACIN 250 MG TAB ONE (23:01)
--- NOTE | 2016-12-29 02:18 | EMERGENCY ROOM VISIT NOTE ---
ED Visit Note First contact with patient: 20:43 I have personally seen and evaluated the patient with the PA. I agree with the diagnosis and management decisions and have been personally involved in the case. Please see Anastasia Castro PA-C's notes for further details of the history, physical and visit.
[2017-05-05] MEDS ORDERED: HYDR200T5 PO (13:34)
[2017-05-05] MEDS ORDERED: nasal spray (13:35)
[2017-05-05] MEDS ORDERED: AMLO2.5T PO (13:35)
[2017-08-25] MEDS ORDERED: BUPR200T2 PO (14:44)
[2017-08-26] MEDS ORDERED: BUPR100T8 PO (12:28)
== END 2016-12-28 23:06 | disposition home or self-care (01) ==
LOC: C.EDB 20:09 → C.EDA 23:06
DX: J18.1 Lobar pneumonia, unspecified organism (principal); J45.909 Unspecified asthma, uncomplicated; I10 Essential (primary) hypertension; Z82.49 Family history of ischemic heart disease and other diseases of the circulatory system; D51.0 Vitamin B12 deficiency anemia due to intrinsic factor deficiency; Z93.2 Ileostomy status; E27.49 Other adrenocortical insufficiency; K44.9 Diaphragmatic hernia without obstruction or gangrene

== ENCOUNTER 2017-02-15 04:29 | Inpatient (IN) | payer BC, OTHER ==
[2017-02-15] VITALS (8 sets, daily range): BP systolic 107–168; BP diastolic 59–92; PULSE 62–88; TEMP 36.3–36.6; O2SAT 92–100; Ht 160 cm; Wt 75.0 kg
[~2017-02-15] VITALS: Ht 160 cm; Wt 75.0 kg
[~2017-02-15 04:29] MED LIST changes: -ASPEC81 PO; +HYDR2TAB2 PO; +KLOR-CON 10 PO; +LVNIS40 PO; -OXYC1TAB3 PO
[2017-02-15] MEDS ORDERED: HYDROmorphone INJ 1 MG/ML SYR IV STA ×2 (04:44→05:37)
[2017-02-15] MEDS ORDERED: SODIUM CHLORIDE 0.9% 1000ML 1,000 ML IV STA (04:44)
--- NOTE | 2017-02-15 04:46 | EMERGENCY ROOM VISIT NOTE ---
History Report prepared by Miguel: Donny Serrato Under the Supervision of: Dr. Delfino Abraham M.D. First contact with patient: 04:39 Chief Complaint: KNEEPAIN Stated Complaint: LEFT KNEE INJURY - FALL, S/P SURGERY History of Present Illness The patient is a 71 year old female who presents to the Emergency Room with complaints of left knee pain that began this morning. She rates her pain moderate in severity. She was ambulating, when she fell and split her knee open. She had a knee repair surgery two months ago. She denies any numbness. She did not take any pain medications. She is not on blood thinners. She has chronic anemia. Source of History: patient Onset: this morning Position: knee (left) Symptom Intensity: moderate Quality: sharp Timing: constant Modifying Factors (Worsening): movement Associated Symptoms: No numbness Review of Systems See HPI for pertinent positives & negatives. A total of 10 systems reviewed and were otherwise negative. Past Medical & Surgical Medical Problems: (1) Abdominal hernia (2) Hickory's disease (3) Asthma (4) Benign hypertension (5) Bilateral cellulitis of lower leg (6) CELLULITIS NOS (7) ILEOSTOMY STATUS (8) Lymphedema of left lower extremity (9) Lymphedema of right lower extremity (10) MINERALOCORTICOID DEFICIENCY (11) PNA (pneumonia) (12) Small bowel obstruction Surgical Problems: (1) Post-operative state (2) S/P knee replacement Family History FH: heart disease Social History Smoking Status: Never Smoker Alcohol Use: none Drug Use: none Marital Status: Housing Status: lives with family Occupation Status: unemployed Current/Historical Medications Scheduled Calcium Carbonate-Vitamin D (Calcium 600 + D), 1 CAP PO BID Cholecalciferol (Vitamin D), 2,000 UNITS PO BID Dextroamphetamine Sulfate (Dextroamphetamine Sulfate), 10 MG PO TID Escitalopram (Lexapro), 10 MG PO QPM Escitalopram Oxalate (Lexapro), 20 MG PO QAM Fludrocortisone Acetate (Florinef), 0.1 MG PO QAM Hydrocortisone (Cortef), 20 MG PO DAILY@0800 Hydrocortisone (Cortef), 10 MG PO DAILY@1600 Hydroxychloroquine Sulfate (Plaquenil), 400 MG PO HS L-Methylfolate W/ Vitamin B6-V (Foltx), 1 TAB PO QAM Levothyroxine Sodium (Synthroid), 150 MCG PO Q2D Levothyroxine Sodium (Synthroid), 175 MCG PO Q2D Lisinopril (Zestril), 20 MG PO QAM Polysaccharide Iron Complex (Iferex 150), 1 CAP PO QAM [Klor-Con M10], 20 MEQ PO BID Scheduled PRN Diphenoxylate W/ Atropine (Lomotil), 1-2 TAB PO 4-6 X PRN for bowel motility Ibuprofen (Advil), 400 MG PO TID PRN for Pain Ipratropium-Albuterol (Combivent Respimat), 1 PUFFS INH QID PRN for ASTHMA Lidocaine (Lidoderm Patch 5%), DIRECTED PRN for Pain Loperamide Hcl (Imodium), 4 MG PO TID PRN for Diarrhea Allergies Coded Allergies: Sulfa Antibiotics (Verified Allergy, Intermediate, RASH, 02/15/17) UNKNOWN IF THIS IS TO ANITBIOTICS OR OTHER SULFA Amoxicillin (Verified Adverse Reaction, Mild, gi upset, 02/15/17) Clavulanic Acid (Verified Adverse Reaction, Mild, nausea & vomiting, ) Erythromycin (Verified Adverse Reaction, Mild, gi upset, 02/15/17) Physical Exam Vital Signs Date Time Temp Pulse Resp B/P Pulse Ox O2 Delivery O2 Flow Rate FiO2 02/15/17 06:05 72 17 97 02/15/17 06:01 169/88 02/15/17 05:35 60 16 97 02/15/17 05:32 71 16 179/91 97 Room Air 02/15/17 04:58 66 02/15/17 04:36 36.4 76 16 172/71 95 Room Air Physical Exam GENERAL: Patient is uncomfortable and anxious appearing and in moderate acute distress. HEENT: No acute trauma, normocephalic atraumatic, mucous membranes moist, no nasal congestion, no scleral icterus. NECK: No stridor, no adenopathy, no meningismus, trachea is midline. LUNGS: No dyspnea. Clear to auscultation and equal bilaterally. No wheeze, no rhonchi. HEART: Regular rate and rhythm. No murmurs, rubs, gallops appreciated. ABDOMEN: Soft, nontender, bowel sounds positive, no masses appreciated, no peritonitis. BACK: No midline tenderness, no CVA tenderness EXTREMITIES: Left knee: Dehiscence of anterior knee. Surgical wound with mild active bleeding. Large hematoma to the lateral aspects of the left knee. Severe pain with attempt at ROM of left knee. Peripheral venous congestion of lower legs bilaterally. Pulse intact. Sensation intact. NEUROLOGIC: Alert and oriented, no acute motor or sensory deficits, no focal weakness, cranial nerves grossly intact. SKIN: No rash, no jaundice, no diaphoresis. Medical Decision & Procedures ER Provider Diagnostic Interpretation: X ray results are stated below per my interpretation: 3 VIEW LEFT KNEE: Mild lateral shift of the patella. Large amount of soft tissue edema. Hardware in place from previous knee replacement. There is an old proximal tibial fracture. Per me. Laboratory Results 02/15/17 04:48 Red Blood Count 3.45, Mean Corpuscular Volume 93.9, Mean Corpuscular Hemoglobin 31.3, Mean Corpuscular Hemoglobin Concent 33.3, Mean Platelet Volume 8.7, Neutrophils (%) (Auto) 67.4, Lymphocytes (%) (Auto) 16.5, Monocytes (%) (Auto) 10.8, Eosinophils (%) (Auto) 4.6, Basophils (%) (Auto) 0.5, Neutrophils # (Auto ) 3.93, Lymphocytes # (Auto) 0.96, Monocytes # (Auto) 0.63, Eosinophils # (Auto ) 0.27, Basophils # (Auto) 0.03 02/15/17 04:48 Test 02/15/17 04:48 White Blood Count 5.83 K/uL (4.8-10.8) Red Blood Count 3.45 M/uL (4.2-5.4) Hemoglobin 10.8 g/dL (12.0-16.0) Hematocrit 32.4 % (37-47) Mean Corpuscular Volume 93.9 fL (80-100) Mean Corpuscular Hemoglobin 31.3 pg (25-34) Mean Corpuscular Hemoglobin Concent 33.3 g/dl (32-36) Platelet Count 515 K/uL (130-400) Mean Platelet Volume 8.7 fL (7.4-10.4) Neutrophils (%) (Auto) 67.4 % Lymphocytes (%) (Auto) 16.5 % Monocytes (%) (Auto) 10.8 % Eosinophils (%) (Auto) 4.6 % Basophils (%) (Auto) 0.5 % Neutrophils # (Auto) 3.93 K/uL (1.4-6.5) Lymphocytes # (Auto) 0.96 K/uL (1.2-3.4) Monocytes # (Auto) 0.63 K/uL (0.11-0.59) Eosinophils # (Auto) 0.27 K/uL (0-0.5) Basophils # (Auto) 0.03 K/uL (0-0.2) RDW Standard Deviation 48.6 fL (36.4-46.3) RDW Coefficient of Variation 14.2 % (11.5-14.5) Immature Granulocyte % (Auto) 0.2 % Immature Granulocyte # (Auto) 0.01 K/uL (0.00-0.02) Prothrombin Time 10.3 SECONDS (9.0-12.0) Prothromb Time International Ratio 1.0 (0.9-1.1) Anion Gap 5.0 mmol/L (3-11) Est Creatinine Clear Calc Drug Dose 62.7 ml/min Estimated GFR () 85.3 Estimated GFR (Non- 73.6 BUN/Creatinine Ratio 17.3 (10-20) Calcium Level 9.0 mg/dl (8.5-10.1) Laboratory results as reviewed by me. Medications Administered Medications (Trade) Dose Ordered Sig/Hector Route Start Time Stop Time Status Last Admin Dose Admin Sodium Chloride (Nss 1000ml) 1,000 ml @ 75 mls/hr [id number] STAT IV 02/15/17 04:44 02/15/17 18:03 02/15/17 04:52 75 MLS/HR Hydromorphone HCl (Dilaudid Inj) 1 mg NOW STAT IV 02/15/17 04:44 02/15/17 04:45 DC 02/15/17 04:52 1 MG Cefazolin Sodium (Ancef 1000mg/55 ml D5W) 2,000 mg NOW STAT IV 02/15/17 05:00 02/15/17 05:01 DC 02/15/17 05:09 2,000 MG Hydromorphone HCl (Dilaudid Inj) 1 mg NOW STAT IV 02/15/17 05:37 02/15/17 05:38 DC 02/15/17 05:43 1 MG ED Course 0439: The patient was evaluated in room A3. A complete history and physical exam was performed. 0444: Ordered Dilaudid Inj 1 mg IV, Sodium Chloride 1000 ml @ 75 mls/hr IV 0500: The patient notes that the Dilaudid is making her feel better. Ordered Cefazolin Sodium 2000 mg IV 0523: I paged Dr. Jacobs of Orthopedics at this time. 0537: Ordered Dilaudid Inj 1 mg IV 0542: I am still waiting for Dr. Jacobs to call back about this patient. 0609: Dr. Jacobs called back at this time. He asked for me to place a wet to dry with an balwinder wrap around the patient's leg. He will be coming to see her. 0619: She is feeling better. She is agreeable to the plan. 0630: Ordered Dilaudid Inj 1 mg IV 0643: Upon reevaluation, the patient is resting. Discussed results and treatment plan with the patient. She verbalized understanding and agreement with the treatment plan. The patient will be evaluated by Dr. Jacobs - Orthopedics, for further management. Medical Decision 71 yr old female with trip and fall on left knee which had had knee replacement surgery a few months ago. Wound has dehisced and is open. Wet-dry applied and covered. Started on IV Ancef. Large lateral hematoma and unclear if there is some movement of patella laterally from normal. No acute fractures. No evidence of other injury. Pain controlled as well. Discussed with Ortho who will bring in for further management. Stable throughout morning. Consults Time Called: [phone] Consulting Physician: Dr. Arlene Vega Returned Call: [phone] He will be evaluating the patient for further management. Impression Primary Impression: Postoperative wound dehiscence Additional Impression: Traumatic hematoma of left knee Scribe Attestation The scribe's documentation has been prepared under my direction and personally reviewed by me in its entirety. I confirm that the note above accurately reflects all work, treatment, procedures, and medical decision making performed by me. Departure Information Dispostion Being Evaluated By Hospitalist Lionel Brown M.D. (PCP) Patient Instructions My [facility] Problem Qualifiers Primary Impression: Postoperative wound dehiscence Encounter type: initial encounter Qualified Codes: T81.31XA - Disruption of external operation (surgical) wound, not elsewhere classified, initial encounter Additional Impression: Traumatic hematoma of left knee Encounter type: initial encounter Qualified Codes: S80.02XA - Contusion of left knee, initial encounter
[2017-02-15 04:59] LABS: BASO % 0.5 %; BASO ABS # 0.03 K/uL (0-0.2); COMPLETE YES; EOS % 4.6 %; HEMATOCRIT 32.4 % (37-47); IG% 0.2 %; LYMPH % 16.5 %; LYMPH ABS # 0.96 K/uL (1.2-3.4); MEAN CELL VOLUME 93.9 fL (80-100); MEAN CORPUSCULAR HEMOGLOBIN 31.3 pg (25-34); MEAN CORPUSCULAR HGB CONC 33.3 g/dl (32-36); MEAN PLATELET VOLUME 8.7 fL (7.4-10.4); MONO % 10.8 %; NEUT % 67.4 %; PLATELET COUNT 515 K/uL (130-400); RED BLOOD COUNT 3.45 M/uL (4.2-5.4); WHITE BLOOD COUNT 5.83 K/uL (4.8-10.8)
[2017-02-15] MEDS ORDERED: CEFAZOLIN SOD 1000MG/55 ML D5W IV STA (05:00)
[2017-02-15 05:10] LABS: PROTHROMBIN TIME (PATIENT) 10.3 SECONDS (9.0-12.0)
[2017-02-15 05:19] LABS: BUN/CREATININE RATIO 17.3 (10-20); CREATININE 0.81 mg/dl (0.60-1.20); POTASSIUM 3.9 mmol/L (3.5-5.1)
[2017-02-15] MEDS ORDERED: HYDROmorphone INJ 1 MG/ML SYR IV PRN (06:30)
[2017-02-15] MEDS ORDERED: NURSING VERBAL MED ORDER ONE ×2 (07:00→22:15)
[2017-02-15] MEDS ORDERED: POTA20TA16 PO (07:03)
[2017-02-15] MEDS ORDERED: IBUP-1050 PO (07:04)
[2017-02-15] MEDS ORDERED: KLOR CON PO (07:09)
[2017-02-15] MEDS ORDERED: CALC-20 PO (07:10)
--- NOTE | 2017-02-15 07:40 | DIAGNOSTIC IMAGING REPORT ---
LEFT KNEE 3 VIEWS CLINICAL HISTORY: Fall with left knee injury. FINDINGS: AP, crosstable lateral, and oblique views of the left knee are compared to study dated 10/12/2016 and 11/22/2016. The skeletal structures are osteopenic. No acute fracture is identified. A left knee arthroplasty is in near-anatomic alignment. There has been arthroplasty revision with an elongated tibial stem is compared to 10/12/2016. No periprosthetic lucency is identified. There is a healing fracture again seen in the medial aspect of the proximal tibial metadiaphyseal region. There has been undersurface remodeling of the patella. A large joint effusion is noted. Bony overgrowth is seen above the fibula. Soft tissue swelling is noted around the knee. IMPRESSION: 1. Joint effusion and soft tissue edema. No acute fracture is clearly seen. 2. There has been revision of the left knee arthroplasty as compared to 10/12/2016. No periprosthetic lucency is identified. 3. Again seen is a healing fracture in the proximal tibia. Electronically signed by: Josh Madrigal M.D. 02/15/2017 7:38 AM Dictated Date/Time: 02/15/2017 7:35 AM
--- NOTE | 2017-02-15 07:45 | DIAGNOSTIC IMAGING REPORT ---
SINGLE VIEW CHEST CLINICAL HISTORY: Preoperative examination. FINDINGS: An AP, portable, upright chest radiograph is compared to study dated 11/17/2016 and correlated with chest CT dated 12/28/2016. The examination is degraded by portable technique and patient rotation. The heart is enlarged and there is atherosclerotic calcification of the thoracic aorta. The pulmonary vasculature is noncongested. Bibasilar atelectasis is observed and there is mild elevation of the right hemidiaphragm. Chronic interstitial thickening is similar to previous. There is no airspace consolidation typical for pneumonia or large pleural effusion. No pneumothorax is seen. The skeletal structures are osteopenic. Arthritic change is noted in the shoulders. IMPRESSION: Cardiomegaly with no acute cardiopulmonary abnormality. Electronically signed by: Josh Madrigal M.D. 02/15/2017 7:44 AM Dictated Date/Time: 02/15/2017 7:43 AM
--- NOTE | 2017-02-15 09:24 | HISTORY & PHYSICAL EXAMINATION ---
DATE OF ADMISSION: 02/15/2017 REASON FOR ADMISSION: Left knee wound dehiscence. HISTORY OF PRESENT ILLNESS: The patient is a 71-year-old white female, known to our practice, who is status post left total knee revision of her tibial component on 11/22/2016. The patient states that she was doing fine and was progressing with her PT and sutures have been removed and she was doing well. She states that last night when she got up to get out of bed, she ended up tripping on her great toe and lost her balance and fell to the ground. She had immediate pain in her left knee and she noticed that the wound had opened up where she had her revision knee surgery. She said it bled quite a bit and they were able to control bleeding and come to the Emergency Room. She was seen by the staff. Dr. Jacobs was correctional food service supervisor and has admitted the patient and she will be admitted for further care and wound closure. PAST MEDICAL HISTORY: Hypertension, recurrent cellulitis of the lower extremities, asthma, adrenal suppression, spinal stenosis, rheumatoid arthritis, thyroid disease, mitral valve prolapse, chronic lower extremity edema, irritable bowel syndrome, peripheral vascular disease, and a history of SBO. She recently had a right lower lobe pneumonia in early December. PAST SURGICAL HISTORY: Colostomy, left TKA with the above noted revision of tibial component in October, hernia repair, cholecystectomy, hysterectomy, oophorectomy and laparotomy. The patient states that she recently underwent surgery for a stomal hernia around her colostomy where they placed mesh. SOCIAL HISTORY: No alcohol or tobacco use and the patient lives with her and is retired. FAMILY HISTORY: Noncontributory. MEDICATIONS: Calcium carbonate plus vitamin D 1 cap p.o. b.i.d., vitamin D 2000 units p.o. b.i.d., dextroamphetamine sulfate 10 mg p.o. t.i.d., Lomotil 1-2 tabs p.o. q. 4-6 hours p.r.n., Lexapro 10 mg p.o. q.p.m. and 20 mg p.o. q.a.m., Florinef 0.1 mg p.o. q.a.m., and hydrocortisone 20 mg p.o. daily. The patient may take a double dose and then also 10 mg p.o. daily at 1600. The first dose is at 0800. Plaquenil 400 mg p.o. at bedtime, Advil 400 mg p.o. t.i.d. p.r.n., Combivent Respimat 1 puff inhaled q.i.d. p.r.n., Foltx 1 tab p.o. q.a.m., Synthroid 150 mcg p.o. q. 2 days alternate with the 175 mcg brand necessary per the patient. Lidoderm patch as directed, lisinopril 20 mg p.o. q.a.m., Imodium 4 mg p.o. t.i.d. p.r.n., Iferex 150 one cap p.o. q.a.m., and Klor-Con M10 at 20 mEq p.o. b.i.d. ALLERGIES: AMOXICILLIN, CLAVULANIC ACID, ERYTHROMYCIN AND SULFA ANTIBIOTICS. REVIEW OF SYSTEMS: The patient states that she had her stomal hernia repair in end of November and then developed her pneumonia in the early December. She states that she has not quite recovered from that and still feels tired and at times. She also has chronic anemia. She feels that her knee has got a little more stiff since having her stomal operation and that she wanted to get started on more physical therapy for this. She has had no increased fevers or flu or cold-like symptoms of late. No increased cough or sputum production and what sounds like she feels a little bit winded with overexertion at times. She states that she was going to go see Dr. Soto for her right lower extremity because it was starting to get increasingly red and somewhat tender. She denies any chest pain, chest pressure, or irregular heartbeat. She denies hemoptysis. She denies hematemesis. She denies any bleeding around the stoma and no bleeding noted with her fecal contents of her stoma. She denies abdominal pain. No hematuria, pyuria, or dysuria. No seizures. No dizziness, lightheadedness, or vertigo. PHYSICAL EXAMINATION: GENERAL: On exam, the patient is a well-developed and well-nourished white female who appears her stated age. She is pleasant and cooperative. SKIN: Warm and dry. Turgor is fair. HEENT: Head is normocephalic and atraumatic. There is no scleral icterus or injection. Nasal airway is patent. Oral mucosa is pink and moist. NECK: Supple. HEART: Regular rate and rhythm with a murmur heard best at the left sternal border. LUNGS: Sounds clear to me bilaterally. ABDOMEN: Soft, round and nontender. Stoma with a collection bag is present. Bowel sounds are present and active x4. GENITALIA AND RECTAL: Not performed at this time. EXTREMITIES: On examination of the patient's left lower extremity, a bandage is noted with an Eddie wrap around that over the knee and some dried blood noted on the lower extremity below the knee. This is removed and reveals what appears to be her complete incision has opened up where she had her revision surgery of her knee. There is no overt active bleeding at this point in time and although I do not explore the wound because of the patient's pain. I cannot appreciate to see any metal hardware at this time. The wound was then redressed and Eddie wrap placed and the patient is capable of doing a strong straight leg raise with the left lower extremity. She has good range of motion of her left ankle and comparing to her right ankle, strengths are equal bilaterally. She denies pain in the right lower extremity after the fall, but is noted of having some erythema and edema noted about mid kong portion down to her ankle. On palpation, she is somewhat tender over the erythematous area. She has no right knee pain and no right hip pain. Upper extremities are essentially benign and have good range of motion without discomfort. She has no new pains in the upper extremities after the falls including the wrists, elbows and shoulders. She has no new neck pain, no thoracic or back pain. She denies left hip pain. She does have some chronic edema noted also of the left lower extremity, but there is no erythema noted compared to the right. Distal pulses are difficult with edema, but are palpable of the dorsalis pedis. Upper extremity pulses are within normal limits. NEUROLOGICAL: No gross motor or sensory deficits seen at this time. DIAGNOSES: 1. Left knee wound dehiscence. 2. Cellulitis, right lower extremity. PLAN: The patient will be admitted and medicine services will be consulted for preoperative medical clearance and postoperative medical management. She was given 1 dose of Ancef 2000 mg this morning and will be continued on antibiotics after the surgery. She will need an irrigation and debridement of the area with exploration and closure of the wound. If the wound does go deeper into the joint, this will have to be opened and then likely irrigation and debridement of the deep joint with polyethylene bearing change. This has been explained to the patient and her and they are in agreement and she will now be admitted for further care. JUANJOSE
[2017-02-15] MEDS ORDERED: IPRATROPIUM BROMIDE/ALBUTEROL respimat INH INH PRN (11:15)
[2017-02-15] MEDS ORDERED: ONDANSETRON INJ 2 MG/ML 2 ML VIAL IV PRN ×3 (11:15→15:45)
[2017-02-15] MEDS ORDERED: IBUPROFEN 200 MG TAB PO PRN (11:15)
[2017-02-15] MEDS ORDERED: DIPHENOXYLATE/ATROPINE 2.5/0.025MG TAB PO PRN (11:15)
[2017-02-15] MEDS ORDERED: LOPERAMIDE HCL 2 MG CAP PO PRN (11:15)
[2017-02-15 11:26] LABS: URINE APPEARANCE CLEAR (CLEAR); URINE BILIRUBIN NEG (NEG); URINE COLOR YELLOW; URINE EPITHELIAL CELL AUTO >30 /lpf (0-5); URINE NITRITE NEG (NEG); URINE PH 5.5 (4.5-7.5); URINE SPECIFIC GRAVITY 1.014 (1.000-1.030); UROBILINOGEN NEG (NEG)
[2017-02-15 11:36] LABS: REVIEW REQ? NO
[2017-02-15 11:37] LABS: MANUAL MICROSCOPIC REQUIRED? NO
--- NOTE | 2017-02-15 11:46 | History and Physical ---
History & Physical Date & Time of Service: February 15, 2017 at 11:38 Chief Complaint: Left Knee Wound Dehiscence Primary Care Physician: Con Tapia M.D. History of Present Illness Source: patient, family This is a 71-year-old female with PMHx of Hypertension, recurrent cellulitis of the lower, extremities, asthma, adrenal insufficiency, spinal stenosis, rheumatoid, arthritis, thyroid disease, mitral valve prolapse, chronic lower extremityedema, irritable bowel syndrome, peripheral vascular disease, and a history of SBO with 4th parastomal revision completed within the past month at [place]. She presents s/p fall onto the R knee and had wound dehiscence on . The patient's is present at bedside. Patient reports that her pain is moderate currently, and has been using Dilaudid as needed for extreme pain. Her major complaint currently is that nursing staff are having to assist her to the bathroom and ambulation. She is requesting that she be able to change her ostomy in private, and that she can see the ostomy wound nurse as it has been leaking somewhat since her last revision. The patient has no other acute complaints. She is anticipating surgical repair this afternoon by Dr. Mercado. Past Medical/Surgical History Medical Problems: (1) Abdominal hernia Status: Chronic (2) Chicot's disease Status: Chronic (3) Asthma Status: Chronic (4) Benign hypertension Status: Chronic (5) Bilateral cellulitis of lower leg Status: Chronic (6) CELLULITIS NOS Status: Chronic (7) ILEOSTOMY STATUS Status: Chronic (8) Lymphedema of left lower extremity Status: Chronic (9) Lymphedema of right lower extremity Status: Chronic (10) MINERALOCORTICOID DEFICIENCY Status: Chronic Family History FH: heart disease Social History Smoking Status: Never Smoker Smokeless Tobacco Use: No Alcohol Use: none Drug Use: none Marital Status: Housing status: lives with family Occupational Status: unemployed Immunizations History of Influenza Vaccine: Yes Influenza Vaccine Date: Nov 20, 2015 History of Tetanus Vaccine?: Yes Tetanus Immunization Date: Sep 29, 2006 History of Pneumococcal: Yes Pneumococcal Date: Nov 25, 2012 History of Hepatitis B Vaccine: Unknown Multi-Drug Resistant Organisms History of MDRO: No Allergies Coded Allergies: Sulfa Antibiotics (Verified Allergy, Intermediate, RASH, 02/15/17) UNKNOWN IF THIS IS TO ANITBIOTICS OR OTHER SULFA Amoxicillin (Verified Adverse Reaction, Mild, gi upset, 02/15/17) Clavulanic Acid (Verified Adverse Reaction, Mild, nausea & vomiting, ) Erythromycin (Verified Adverse Reaction, Mild, gi upset, 02/15/17) Home Medications Scheduled Calcium Carbonate-Vitamin D (Calcium 600 + D), 1 CAP PO BID Cholecalciferol (Vitamin D), 2,000 UNITS PO BID Dextroamphetamine Sulfate (Dextroamphetamine Sulfate), 10 MG PO TID Escitalopram (Lexapro), 10 MG PO QPM Escitalopram Oxalate (Lexapro), 20 MG PO QAM Fludrocortisone Acetate (Florinef), 0.1 MG PO QAM Hydrocortisone (Cortef), 20 MG PO DAILY@0800 Hydrocortisone (Cortef), 10 MG PO DAILY@1600 Hydroxychloroquine Sulfate (Plaquenil), 400 MG PO HS L-Methylfolate W/ Vitamin B6-V (Foltx), 1 TAB PO QAM Levothyroxine Sodium (Synthroid), 150 MCG PO Q2D Levothyroxine Sodium (Synthroid), 175 MCG PO Q2D Lisinopril (Zestril), 20 MG PO QAM Polysaccharide Iron Complex (Iferex 150), 1 CAP PO QAM [Klor-Con M10], 20 MEQ PO BID Scheduled PRN Diphenoxylate W/ Atropine (Lomotil), 1-2 TAB PO 4-6 X PRN for bowel motility Ibuprofen (Advil), 400 MG PO TID PRN for Pain Ipratropium-Albuterol (Combivent Respimat), 1 PUFFS INH QID PRN for ASTHMA Lidocaine (Lidoderm Patch 5%), DIRECTED PRN for Pain Loperamide Hcl (Imodium), 4 MG PO TID PRN for Diarrhea Review of Systems Constitutional: No fever, sweats or chills Eyes: No diplopia, no worsening or blurred vision ENT: normal hearing, no trouble swallowing Respiratory: No cough, sputum, dyspnea at rest or on exertion Cardiovascular: No chest pain, tightness or palpitations Abdomen: No pain, nausea, vomiting, diarrhea or constipation Musculoskeletal: + R shoulder pain which is chronic since prior to knee repair, + L knee joint pain, No calf pain, Some swelling around left knee Neurologic: No weakness, + neuropathy in bilateral lower extremity, using walker for ambulation assistance Psychiatric: + anxiety and depression hx Skin: No rash or itch Physical Exam Vital Signs Date Time Temp Pulse Resp B/P Pulse Ox O2 Delivery O2 Flow Rate FiO2 02/15/17 08:00 98 Room Air 02/15/17 08:00 36.6 63 16 168/77 98 Room Air 02/15/17 07:49 79 18 187/90 97 02/15/17 07:00 97 Room Air 02/15/17 06:05 72 17 97 02/15/17 06:01 169/88 02/15/17 05:35 60 16 97 02/15/17 05:32 71 16 179/91 97 Room Air 02/15/17 04:58 66 02/15/17 04:36 36.4 76 16 172/71 95 Room Air Diagnostics Laboratory Results Results Past 24 Hours Test 02/15/17 04:48 02/15/17 10:50 Range/Units White Blood Count 5.83 4.8-10.8 K/uL Red Blood Count 3.45 4.2-5.4 M/uL Hemoglobin 10.8 12.0-16.0 g/dL Hematocrit 32.4 37-47 % Mean Corpuscular Volume 93.9 80-100 fL Mean Corpuscular Hemoglobin 31.3 25-34 pg Mean Corpuscular Hemoglobin Concent 33.3 32-36 g/dl Platelet Count 515 130-400 K/uL Mean Platelet Volume 8.7 7.4-10.4 fL Neutrophils (%) (Auto) 67.4 % Lymphocytes (%) (Auto) 16.5 % Monocytes (%) (Auto) 10.8 % Eosinophils (%) (Auto) 4.6 % Basophils (%) (Auto) 0.5 % Neutrophils # (Auto) 3.93 1.4-6.5 K/uL Lymphocytes # (Auto) 0.96 1.2-3.4 K/uL Monocytes # (Auto) 0.63 0.11-0.59 K/uL Eosinophils # (Auto) 0.27 0-0.5 K/uL Basophils # (Auto) 0.03 0-0.2 K/uL RDW Standard Deviation 48.6 36.4-46.3 fL RDW Coefficient of Variation 14.2 11.5-14.5 % Immature Granulocyte % (Auto) 0.2 % Immature Granulocyte # (Auto) 0.01 0.00-0.02 K/uL Prothrombin Time 10.3 9.0-12.0 SECONDS Prothromb Time International Ratio 1.0 0.9-1.1 Sodium Level 141 136-145 mmol/L Potassium Level 3.9 3.5-5.1 mmol/L Chloride Level 106 98-107 mmol/L Carbon Dioxide Level 30 21-32 mmol/L Anion Gap 5.0 3-11 mmol/L Blood Urea Nitrogen 14 7-18 mg/dl Creatinine 0.81 0.60-1.20 mg/dl Est Creatinine Clear Calc Drug Dose 62.7 ml/min Estimated GFR () 85.3 Estimated GFR (Non- 73.6 BUN/Creatinine Ratio 17.3 10-20 Random Glucose 91 70-99 mg/dl Calcium Level 9.0 8.5-10.1 mg/dl Urine Color YELLOW Urine Appearance CLEAR CLEAR Urine pH 5.5 4.5-7.5 Urine Specific [place] 1.014 1.000-1.030 Urine Protein NEG NEG Urine Glucose (UA) NEG NEG Urine Ketones NEG NEG Urine Occult Blood NEG NEG Urine Nitrite NEG NEG Urine Bilirubin NEG NEG Urine Urobilinogen NEG NEG Urine Leukocyte Esterase TRACE NEG Urine WBC (Auto) 1-5 0-5 /hpf Urine RBC (Auto) 0-4 0-4 /hpf Urine Hyaline Casts (Auto) 1-5 0-5 /lpf Urine Epithelial Cells (Auto) >30 0-5 /lpf Urine Bacteria (Auto) NEG NEG Impression Advanced Directives Existing Living Will: No Existing Power of Insole And Outsole Preparer: No VTE Prophylaxis VTE Risk Assessment Done? Y/N: Yes Risk Level: High
--- NOTE | 2017-02-15 11:46 | Medical Consult ---
Consultation Date of Consultation: February 15, 2017. Attending Physician: Lionel Mercado M.D. Reason for Consultation: Medical management, surgical clearance History of Present Illness This is a 71-year-old female with PMHx of Hypertension, recurrent cellulitis of the lower, extremities, asthma, adrenal insufficiency, spinal stenosis, rheumatoid, arthritis, thyroid disease, mitral valve prolapse, chronic lower extremity edema, irritable bowel syndrome, peripheral vascular disease, and a history of SBO with 4th parastomal revision completed within the past month at [place]. She presents s/p fall onto the R knee and had wound dehiscence on . The patient's is present at bedside. Patient reports that her pain is moderate currently, and has been using Dilaudid as needed for extreme pain. Her major complaint currently is that nursing staff are having to assist her to the bathroom and ambulation. She is requesting that she be able to change her ostomy in private, and that she can see the ostomy wound nurse as it has been leaking somewhat since her last revision. The patient has no other acute complaints. She is anticipating surgical repair this afternoon by Dr. Mercado. Past Medical/Surgical History Medical Problems: (1) Bilateral cellulitis of lower leg Status: Acute (2) Bowel obstruction Status: Acute (3) Cellulitis Status: Acute (4) Chronic acquired lymphedema Status: Acute (5) Pneumonia Status: Acute (6) Postoperative wound dehiscence Status: Acute (7) Right lower lobe pneumonia Status: Acute (8) Traumatic hematoma of left knee Status: Acute Family History FH: heart disease Social History Smoking Status: Never Smoker Smokeless Tobacco Use: No Alcohol Use: none Drug Use: none Marital Status: Housing Status: lives with family Occupation Status: unemployed Allergies Coded Allergies: Sulfa Antibiotics (Verified Allergy, Intermediate, RASH, 02/15/17) UNKNOWN IF THIS IS TO ANITBIOTICS OR OTHER SULFA Amoxicillin (Verified Adverse Reaction, Mild, gi upset, 02/15/17) Clavulanic Acid (Verified Adverse Reaction, Mild, nausea & vomiting, ) Erythromycin (Verified Adverse Reaction, Mild, gi upset, 02/15/17) Current Inpatient Medications Current Inpatient Medications Medications (Trade) Dose Ordered Sig/Hector Route Start Time Stop Time Status Last Admin Dose Admin Sodium Chloride (Nss 1000ml) 1,000 ml @ 75 mls/hr [id number] STAT IV 02/15/17 04:44 02/15/17 18:03 02/15/17 04:52 75 MLS/HR Hydromorphone HCl (Dilaudid Inj) 1 mg Q3H PRN IV 02/15/17 11:15 03/01/17 11:14 Ondansetron HCl (Zofran Inj) 4 mg Q6H PRN IV 02/15/17 11:15 03/17/17 11:14 Review of Systems Constitutional: No fever, sweats or chills Eyes: No diplopia, no worsening or blurred vision ENT: normal hearing, no trouble swallowing Respiratory: No cough, sputum, dyspnea at rest or on exertion Cardiovascular: No chest pain, tightness or palpitations Abdomen: No pain, nausea, vomiting, diarrhea or constipation Musculoskeletal: + R shoulder pain which is chronic since prior to knee repair, + L knee joint pain, No calf pain, Some swelling around left knee Neurologic: No weakness, + neuropathy in bilateral lower extremity, using walker for ambulation assistance Psychiatric: + anxiety and depression hx Skin: No rash or itch Physical Exam Date Time Temp Pulse Resp B/P Pulse Ox O2 Delivery O2 Flow Rate FiO2 02/15/17 08:00 98 Room Air 02/15/17 08:00 36.6 63 16 168/77 98 Room Air 02/15/17 07:49 79 18 187/90 97 02/15/17 07:00 97 Room Air 02/15/17 06:05 72 17 97 02/15/17 06:01 169/88 02/15/17 05:35 60 16 97 02/15/17 05:32 71 16 179/91 97 Room Air 02/15/17 04:58 66 02/15/17 04:36 36.4 76 16 172/71 95 Room Air General: awake, alert, no apparent distress, overweight Head: Normocephalic, atraumatic ENT: PERRL, EOMI, no pharyngeal exudate, mucous membranes moist Chest: Clear to auscultation, on room air, no adventitious breath sounds Cardiac: Regular rate and rhythm, + systolic murmur at 5th ICS LSB, no JVD, normal peripheral pulses, good capillary refill Abdominal: + ostomy with brown, soft outs, NABS x 4 quadrants, soft, nontender to palpation, no rebound, guarding or tenderness Extremities: + HAYDEN wrap over the Left knee, +wound dehiscense, + chronic venous stasis changes bilaterally, no active cellulitis, calfs nontender to palpation Psych: Normal mood and affect Neuro: AAO x 3, strength intact bilaterally and related 5/5, no motor deficits, speech is clear, no peripheral sensory deficits Laboratory Results Last 24 Hours Test 02/15/17 04:48 02/15/17 10:50 White Blood Count 5.83 K/uL Red Blood Count 3.45 M/uL Hemoglobin 10.8 g/dL Hematocrit 32.4 % Mean Corpuscular Volume 93.9 fL Mean Corpuscular Hemoglobin 31.3 pg Mean Corpuscular Hemoglobin Concent 33.3 g/dl Platelet Count 515 K/uL Mean Platelet Volume 8.7 fL Neutrophils (%) (Auto) 67.4 % Lymphocytes (%) (Auto) 16.5 % Monocytes (%) (Auto) 10.8 % Eosinophils (%) (Auto) 4.6 % Basophils (%) (Auto) 0.5 % Neutrophils # (Auto) 3.93 K/uL Lymphocytes # (Auto) 0.96 K/uL Monocytes # (Auto) 0.63 K/uL Eosinophils # (Auto) 0.27 K/uL Basophils # (Auto) 0.03 K/uL RDW Standard Deviation 48.6 fL RDW Coefficient of Variation 14.2 % Immature Granulocyte % (Auto) 0.2 % Immature Granulocyte # (Auto) 0.01 K/uL Prothrombin Time 10.3 SECONDS Prothromb Time International Ratio 1.0 Sodium Level 141 mmol/L Potassium Level 3.9 mmol/L Chloride Level 106 mmol/L Carbon Dioxide Level 30 mmol/L Anion Gap 5.0 mmol/L Blood Urea Nitrogen 14 mg/dl Creatinine 0.81 mg/dl Est Creatinine Clear Calc Drug Dose 62.7 ml/min Estimated GFR () 85.3 Estimated GFR (Non- 73.6 BUN/Creatinine Ratio 17.3 Random Glucose 91 mg/dl Calcium Level 9.0 mg/dl Urine Color YELLOW Urine Appearance CLEAR Urine pH 5.5 Urine Specific [place] 1.014 Urine Protein NEG Urine Glucose (UA) NEG Urine Ketones NEG Urine Occult Blood NEG Urine Nitrite NEG Urine Bilirubin NEG Urine Urobilinogen NEG Urine Leukocyte Esterase TRACE Urine WBC (Auto) 1-5 /hpf Urine RBC (Auto) 0-4 /hpf Urine Hyaline Casts (Auto) 1-5 /lpf Urine Epithelial Cells (Auto) >30 /lpf Urine Bacteria (Auto) NEG Assessment & Plan This is a 71-year-old female with PMHx of Hypertension, recurrent cellulitis of the lower, extremities, asthma, adrenal insufficiency, spinal stenosis, rheumatoid, arthritis, thyroid disease, mitral valve prolapse, chronic lower extremity edema, irritable bowel syndrome, peripheral vascular disease, and a history of SBO with 4th parastomal revision completed within the past month at [place]. Left knee wound dehiscence - Planned for later today with Dr. Mercado - Analgesia per primary team - Dilaudid on board - DVT Prophylaxis per the primary team - PT/OT consults Parastomal revision s/p SBO - We'll consult wound ostomy nursing in-house patient reports ostomy has been leaking Adrenal insufficiency - We'll replace hydrocortisone 10 mg daily with 20 mg IV today to prevent any adrenal crisis with surgery, resume oral dosing tomorrow but with 20 mg PO. Home dosing can be resumed on discharge to 10 mg daily. - Continue florinef 0.1 mg daily Hypertension - Continue lisinopril 20 mg tomorrow, held today pending surgery Hypothyroidism -Cont home medication dosing of levothyroxine 150 g every other day, alternating with 175 g every other day Depression/anxiety -Continue Lexapro 20 mg QAM and 10 mg QPM DVT prophylaxis: Per primary team, spring, SCDs CODE STATUS: Full code Thank you for the consultation, we will follow along. Disposition: Patient from home, likely will require rehabilitation/home health services after discharge. I agree with PA assessment and plan and have personally seen and examined pt myself Noted accelerated HTN Reviewed labs Ext left knee wound Agree with ancef at this time OK for surgery for wound dehiscence Would cont hydrocortisone IV at this time to prevent adrenal crisis Appreciate wound care recs Will cont to monitor
[2017-02-15] MEDS: HYDROmorphone INJ 1 MG/ML SYR IV PRN ×2 (12:50→17:48)
[2017-02-15] MEDS ORDERED: MIDAZOLAM HCL 1 MG/ML 2ML VIAL ONE (13:13)
[2017-02-15] MEDS ORDERED: FENTANYL CITRATE INJ 50 MCG/1 ML 2 ML VIAL ONE (13:13)
[2017-02-15] MEDS ORDERED: NURSING VERBAL MED ORDER STA (13:26)
[2017-02-15] MEDS ORDERED: HYDROCORTISONE IV 20 MG in SYRINGE 0 ML IV ONE (13:30)
[2017-02-15] MEDS ORDERED: CEFAZOLIN IV 2,000 MG/60 ML D5W IV ONE (13:34)
[2017-02-15] MEDS ORDERED: BACITRACIN 50000 UNIT VIAL ONE (14:07)
[2017-02-15] MEDS ORDERED: ATROPINE SULFATE 0.1 MG/ML 5ML SYR IV PRN (14:30)
[2017-02-15] MEDS ORDERED: POVIDONE-IODINE OP SOLN 30 ML BTL ONE (14:31)
[2017-02-15] MEDS ORDERED: LIDOCAINE HCL 2% 2 ML VIAL (20MG/ML) ONE (15:29)
[2017-02-15] MEDS ORDERED: ONDANSETRON INJ 2 MG/ML 2 ML VIAL ONE (15:29)
[2017-02-15] MEDS ORDERED: PROPOFOL IV EMULSION 10 MG/ML 20 ML VIAL IV ONE (15:29)
[2017-02-15] MEDS ORDERED: PHENYLEPHRINE 100MCG/ML 5ML SYR ONE (15:29)
[2017-02-15] MEDS ORDERED: EpHEDrine SULFATE 50MG/5ML SYR ONE (15:29)
--- NOTE | 2017-02-15 15:36 | [facility] Post Operative Brief Note ---
Immediate Operative Summary Operative Date February 15, 2017. Pre-Operative Diagnosis Left knee wound dehiscence Post-Operative Diagnosis Left knee wound dehiscence Procedure(s) Performed Left Knee Incision and Drainage, Wound Dehiscence Surgeon Dr. Lionel Mercado Crop Specialist Surgeon(s) Chava Caceres PA-C Estimated Blood Loss 25mL Findings superficial w small lateral hematoma Specimens None per surgeon Complication(s) None Disposition Recovery Room / PACU
[2017-02-15] MEDS: HYDROmorphone INJ 2 MG/ML SYR/VIAL IV PRN ×6 (15:40→16:05)
[2017-02-15] MEDS ORDERED: BISACODYL 10 MG SUPP PR PRN (15:45)
[2017-02-15] MEDS ORDERED: ZOLPIDEM TARTRATE 5 MG TAB PO PRN (15:45)
[2017-02-15] MEDS ORDERED: SOD PHOSPHATE/SOD BIPHOSPHATE ENEMA 132 ML BTL PR PRN (15:45)
[2017-02-15] MEDS ORDERED: METOCLOPRAMIDE HCL INJ 5 MG/ML 2 ML VIAL IV PRN (15:45)
[2017-02-15] MEDS ORDERED: DiphenhydrAMINE HCL 50 MG/ML VIAL IV PRN (15:45)
[2017-02-15] MEDS ORDERED: ALUMINUM/MAGNESIUM/SIMETH (MAALOX MAX) 30 ML UDC PO PRN (15:45)
--- NOTE | 2017-02-15 16:11 | Anesthesiology Progress Note ---
Anesthesia Post Op Note Date & Time February 15, 2017 at 16:11 Vital Signs Pain Intensity: 3 Vital Signs Past 12 Hours Date Time Temp Pulse Resp B/P Pulse Ox O2 Delivery O2 Flow Rate FiO2 02/15/17 16:05 83 16 155/76 97 Nasal Cannula 3 02/15/17 15:55 84 16 151/81 96 Nasal Cannula 3 02/15/17 15:45 79 16 155/71 100 Nasal Cannula 3 02/15/17 15:37 36.2 86 16 155/77 98 Nasal Cannula 3 02/15/17 08:00 98 Room Air 02/15/17 08:00 36.6 63 16 168/77 98 Room Air 02/15/17 07:49 79 18 187/90 97 02/15/17 07:00 97 Room Air 02/15/17 06:05 72 17 97 02/15/17 06:01 169/88 02/15/17 05:35 60 16 97 02/15/17 05:32 71 16 179/91 97 Room Air 02/15/17 04:58 66 02/15/17 04:36 36.4 76 16 172/71 95 Room Air Notes Mental Status: alert / awake / arousable, participated in evaluation Pt Amnestic to Procedure: Yes Nausea / Vomiting: adequately controlled Pain: adequately controlled Airway Patency, RR, SpO2: stable & adequate BP & HR: stable & adequate Hydration State: stable & adequate Anesthetic Complications: no major complications apparent
[2017-02-15] MEDS: D5W AND 1/2NSS + 20MEQ KCL 1,000 ML IV SCH (17:12)
[2017-02-15] MEDS: ACETAMINOPHEN 500 MG TAB PO SCH ×2 (17:48→22:43)
--- NOTE | 2017-02-15 20:12 | OPERATIVE REPORT ---
DATE OF OPERATION: 02/15/2017 PREOPERATIVE DIAGNOSIS: Traumatic wound dehiscence status post left total knee revision. POSTOPERATIVE DIAGNOSIS: Same. PROCEDURES: Exploration, incision and drainage, and repair superficial wound dehisced 18 cm. SURGEON: Dr. Mercado. MANAGER WHOLESALE: Chava Caceres PA-C. ANESTHESIA: General. BLOOD LOSS: 25 mL. REPLACEMENT FLUIDS: 800 mL. DRAINS: None. CULTURES: None. COMPLICATIONS: None. COMPONENTS USED: None. NOTE: Chava Caceres assisted throughout due to the complicated nature of this case. He helped with preparation and setup, he first assisted and closed the skin and applied the surface wound VAC. OPERATION AND FINDINGS: DESCRIPTION: Following satisfactory general, the patient was supine. A tourniquet was placed but not inflated. The lower extremity was prepared with Betadine paint and scrub and draped sterilely. Following a surgical time-out, the incision was explored. There was dehiscence of the skin. The patient has very poor skin due to chronic rheumatoid disease. There was a lateral hematoma which was evacuated for about 25 mL of old clotted blood. The wound was irrigated copiously with pulsatile lavage with bacitracin and appeared to be dry. The closure was accomplished with 2-0 subcuticular. It should be noted the patient's subcuticular layer was extremely fragile and thin due to the trauma and her disease. Surgical bandar were placed in the skin followed by a surface wound VAC and a compression dressing. The patient was then returned to her bed in stable condition. I attest to the content of the Intraoperative Record and any orders documented therein. Any exceptio ns are noted below.
[2017-02-15] MEDS: DOCUSATE SODIUM 100 MG CAP PO SCH (21:00)
[2017-02-15] MEDS ORDERED: HYDROXYCHLOROQUINE SULFATE 200 MG TAB PO SCH (21:00)
[2017-02-15] MEDS ORDERED: SENNA 8.6 MG TAB PO SCH (21:00)
[2017-02-15] MEDS ORDERED: HYDROCORTISONE 10 MG TAB PO SCH (21:00)
[2017-02-15] MEDS ORDERED: ESCITALOPRAM OXALATE 10 MG TAB PO SCH (21:00)
[2017-02-15] MEDS: CALCIUM 600MG + VIT D 400 IU TAB PO SCH (21:45)
[2017-02-15] MEDS: POTASSIUM CHLORIDE 20 MEQ TABCR PO SCH (21:46)
[2017-02-15] MEDS: CHOLECALCIFEROL 1000 INTER.UNIT TAB PO SCH (21:47)
[2017-02-15] MEDS: OXYCODONE HCL IR 5 MG TAB (IMMEDIATE RELEASE) PO PRN (21:49)
[2017-02-16] MEDS: CLINDAMYCIN IV 600 MG in DEXTROSE 5% ADD-VANTAGE 50ML 50 ML IV SCH ×2 (00:54→07:36)
[2017-02-16] MEDS: D5W AND 1/2NSS + 20MEQ KCL 1,000 ML IV SCH (02:48)
[2017-02-16 03:13] VITALS: BP 106/67; PULSE 67; TEMP 36.7; O2SAT 95
[2017-02-16] MEDS: ACETAMINOPHEN 500 MG TAB PO SCH (05:45)
[2017-02-16] MEDS: OXYCODONE HCL IR 5 MG TAB (IMMEDIATE RELEASE) PO PRN ×2 (05:48→10:23)
[2017-02-16] MEDS ORDERED: LEVOTHYROXINE 175 MCG TAB PO SCH (06:00)
[2017-02-16] MEDS: HYDROCORTISONE 10 MG TAB PO SCH ×3 (07:40→07:58)
[2017-02-16 07:42] LABS: BUN/CREATININE RATIO 16.3 (10-20); CALCIUM 8.4 mg/dl (8.5-10.1); CREATININE 0.72 mg/dl (0.60-1.20); POTASSIUM 4.5 mmol/L (3.5-5.1)
[2017-02-16] MEDS: CALCIUM 600MG + VIT D 400 IU TAB PO SCH (07:43)
[2017-02-16] MEDS: CHOLECALCIFEROL 1000 INTER.UNIT TAB PO SCH (07:44)
[2017-02-16] MEDS: DOCUSATE SODIUM 100 MG CAP PO SCH (07:44)
[2017-02-16] MEDS: POTASSIUM CHLORIDE 20 MEQ TABCR PO SCH (07:46)
[2017-02-16] MEDS ORDERED: NURSING VERBAL MED ORDER ONE (08:00)
[2017-02-16] MEDS ORDERED: HYDROCORTISONE 10 MG TAB PO SCH (08:00)
--- NOTE | 2017-02-16 08:03 | Orthopedic Progress Note ---
Orthopedic Progress Note Date of Service February 16, 2017. Subjective Post OP Day: 1 Reports: feeling well, pain controlled w PO medications, Denies: complaints Objective calves soft nontender, dressing C/D/I, A&O x3 Date Time Temp Pulse Resp B/P Pulse Ox O2 Delivery O2 Flow Rate FiO2 02/16/17 03:13 36.7 67 16 106/67 95 Room Air 02/16/17 00:50 Room Air 02/15/17 22:59 36.6 77 16 133/72 96 Room Air 02/15/17 19:55 36.6 68 18 107/59 92 Nasal Cannula 3.0 02/15/17 18:55 36.4 62 18 112/69 100 Nasal Cannula 3.0 02/15/17 17:55 36.3 87 14 112/71 99 Nasal Cannula 3.0 02/15/17 17:25 36.3 88 18 124/92 97 Nasal Cannula 3.0 02/15/17 16:55 Nasal Cannula 3.0 02/15/17 16:55 94 Nasal Cannula 3.0 02/15/17 16:55 36.4 78 14 136/74 94 Nasal Cannula 3.0 02/15/17 16:30 36.3 81 16 153/77 97 Nasal Cannula 3 02/15/17 16:15 36.3 83 16 149/82 97 Nasal Cannula 3 02/15/17 16:05 83 16 155/76 97 Nasal Cannula 3 02/15/17 15:55 84 16 151/81 96 Nasal Cannula 3 02/15/17 15:45 79 16 155/71 100 Nasal Cannula 3 02/15/17 15:37 36.2 86 16 155/77 98 Nasal Cannula 3 Assessment & Plan Assessment: POD 1 REPAIR TRAUMATIC DEHISENCE SUPERFICIAL STEROID DEPENDANT Plan: HOME TODAY NO NEEDS PT TO HOLD PLAQUENIL DOESNT NEED STRESS DOSES OF STEROIDS Discharge Planning Discharge Planning: home
[2017-02-16] MEDS ORDERED: SNK PO (08:09)
[2017-02-16] MEDS ORDERED: ACET-1138 PO (08:09)
--- NOTE | 2017-02-16 08:10 | Discharge Instructions ---
Discharge Instructions Date of Service February 16, 2017. Admission Reason for Admission: Left Knee Wound Dehiscence Discharge Discharge Diagnosis / Problem: sp repair left wound incision Discharge Goals Goal(s): Decrease discomfort, Improve function, Increase independence Activity Recommendations Activity Limitations: per Instructions/Follow-up section Lifting Limitations: none Exercise/Sports Limitations: gradually increase as tolerated Shower/Bathe: may shower/bathe in 3 days . Instructions / Follow-Up Instructions / Follow-Up ACTIVITY RECOMMENDATIONS: SELF CARE INSTRUCTIONS AFTER TOTAL KNEE REPLACEMENT 2. Continue working on all exercises taught to you in the hospital. Your goals should be to increase bending of your knee to 90 degrees and beyond and to fully straighten your knee. B. You may progress at your own pace from walking with a walker or crutches to a cane; then to no assistive devices. C. Make walking a part of your daily routine. Be up as much as comfortable with rest periods throughout the day. Rest with leg elevation is very important. Use the ice wrap frequently for the first 3-4 weeks. D. There are no restrictions on activities. You may ride in a car, shop, participate in panel assembler and all social activities. E. Wear the long elastic stockings (PREMA hose) 20 hours a day for 2 weeks after surgery. They can be removed several times a day for laundering and for a bath. F. You may shower, no tub baths until cleared by your doctor. SPECIAL CARE INSTRUCTIONS: VERY IMPORTANT TO READ AND REVIEW A. There are a few signs you need to watch for after you are home. Call [facility] if you notice any of the followin. Increased severe knee pain. Some pain is expected especially when you exercise. 2. Increased swelling in your leg or knee; pain or swelling of the calf muscle in either lower leg. 3. Any fluid drainage from the incision. 4. Shortness of breath or chest pain. B. Please call [facility] at if you have any concerns or questions about your operation or recovery. The doctor or his nurse will return your call promptly. C. You must take antibiotics before dental work, bladder, bowel or other surgery. Your doctor will provide you with a permanent care to carry describing this precaution. IMPORTANT: * REMEMBER TO TAKE ASPIRIN, 81 MG, TWICE DAILY FOR 4 WEEKS UNLESS OTHERWISE DIRECTED. THIS IS YOUR BLOOD THINNER. * HIGH RISK PATIENTS MAY BE PRESCRIBED A STRONGER BLOOD THINNER. THIS WILL BE PROVIDED AT DISCHARGE. * CALL IF INCREASED PAIN, REDNESS, DRAINAGE OR FEVER GREATER THAT 101. * WEAR PREMA HOSE 20 HOURS PER DAY FOR 2 WEEKS. Prevena- This is a large suction dressing covering your incision. This will help pull any excess drainage from the wound and allow your incision to heal properly. You may shower with this if you can keep the unit outside of the shower. If any bleeding or leakage is noted please call your doctor's office. This will remain on your incision for 7 days and then should be removed. This can be done yourself or by the home nursing staff if applicable. The entire unit is disposable once removed. Once removed, keep incision clean and dry. If redness or drainage is noted, please call your surgeon. - WE WILL REMOVE NEXT WEEK AT YOUR APPOINTMENT. PLEASE CALL TO SCHEDULE A 1 WEEK FOLLOW UP FOLLOW UP VISIT: If appointment is not already scheduled: Please call [facility] to make a follow-up appointment for 1 weeks after your surgery at . Current Hospital Diet Patient's current hospital diet: Regular Diet Discharge Diet Recommended Diet: Regular Diet Procedures Procedures Performed: Left Knee Incision and Drainage, Wound Dehiscence Pending Studies Studies pending at discharge: no Medical Emergencies . Who to Call and When: Medical Emergencies: If at any time you feel your situation is an emergency, please call 911 immediately. . Non-Emergent Contact Non-Emergency issues call your: Surgeon . "Provider Documentation" section prepared by Cecelia Medellin. . VTE Core Measure Inpt VTE Proph given/why not?: Saw Martinez SCD's [place] Drug Monitoring Program Search Results: patient reviewed within database, no issues identified
[2017-02-16] MEDS ORDERED: DiphenhydrAMINE 2%/ZINC 0.1% CREAM 28GM TUBE EXT PRN (08:15)
[2017-02-16 08:30] VITALS: BP 121/55; PULSE 61; TEMP 36.9; O2SAT 96
[2017-02-16] MEDS ORDERED: FLUDROCORTISONE ACETATE 0.1 MG TAB PO SCH (09:00)
[2017-02-16] MEDS ORDERED: MULTIVITAMIN TAB PO SCH (09:00)
[2017-02-16] MEDS ORDERED: METHYLFOLATE PO SCH (09:00)
[2017-02-16] MEDS ORDERED: IRON COMPLEX POLYSACCHARIDE W/VIT C 150 MG CAP PO SCH (09:00)
[2017-02-16] MEDS ORDERED: ESCITALOPRAM OXALATE 20 MG TAB PO SCH (09:00)
[2017-02-16] MEDS ORDERED: POTASSIUM CHLORIDE 10 MEQ TABCR PO SCH (09:00)
[2017-02-16] MEDS ORDERED: VITAMIN B6 V PO SCH (09:00)
[2017-02-16] MEDS ORDERED: LISINOPRIL 10 MG TAB PO SCH (09:00)
[2017-02-16] MEDS ORDERED: PANTOprazole SOD 40 MG TAB PO SCH (09:00)
--- NOTE | 2017-02-16 09:47 | DISCHARGE SUMMARY ---
DATE OF DISCHARGE: 02/16/2017. DISCHARGE DIAGNOSIS: Left knee incision wound dehiscence. SECONDARY DIAGNOSES: Hypertension, recurrent cellulitis of lower extremities, asthma, adrenal insufficiency, spinal stenosis, rheumatoid arthritis, thyroid disease, mitral valve prolapse, chronic lower extremity edema, irritable bowel syndrome, peripheral vascular disease, history of small-bowel obstruction, recent right lower lobe pneumonia in December 2016. CONSULTS: Zari Barker PA-C/Audi Abdalla D.O. COMPLICATIONS: None. PROCEDURES: Left knee incision and drainage wound dehiscence by Dr. Jorge Mercado on 02/15/2017. BRIEF HISTORY: As dictated in history and physical. HOSPITAL SUMMARY: The patient was admitted on the above date and had the above-noted surgery performed which she tolerated well. On her first postoperative day, she was feeling well, pain was controlled and she had no other complaints. Calves were soft and nontender. Dressing was clean, dry and intact and she was alert and oriented. Vital signs are stable. She was afebrile. It was felt she could be discharged to home. For further review, please see chart. LAB AND X-RAY DATA: As per chart. DISCHARGE INSTRUCTIONS: The patient was discharged to home in satisfactory condition on 02/16/2017. DIET: Regular. ACTIVITY: Follow TK instruction sheets; however, do gradual increase in exercises as tolerated. The patient to do physical therapy for her knee and follow up with Dr. Lionel Mercado in 1 week. The patient to call for appointment if one has not been made for you. DISCHARGE MEDICATIONS: Acetaminophen 1000 mg p.o. q. 8 hours, senna 17.2 mg p.o. at bedtime. Resume home medications as listed, but stopping Plaquenil for now.
--- NOTE | 2017-02-16 10:51 | Hospitalist Progress Note ---
Hospitalist Progress Note Date of Service February 16, 2017. Subjective Pt evaluation today including: conversation w/ patient, conversation w/ family , physical exam, chart review, lab review, review of inpatient medication list Patient reports mild to moderate pain in the knee. The pain medication is helping. She denies any fever or chills. No chest pain, chest pressure, shortness of breath or heart palpitations. She reports having gas in her ostomy in addition to stool. Tolerating a diet. Additional Comments: 6 system review negative. Please see pertinent positives in the history of present illness section. Objective Vital Signs Date Time Temp Pulse Resp B/P Pulse Ox O2 Delivery O2 Flow Rate FiO2 02/16/17 08:30 36.9 61 18 121/55 96 Room Air 02/16/17 03:13 36.7 67 16 106/67 95 Room Air 02/16/17 00:50 Room Air 02/15/17 22:59 36.6 77 16 133/72 96 Room Air 02/15/17 19:55 36.6 68 18 107/59 92 Nasal Cannula 3.0 02/15/17 18:55 36.4 62 18 112/69 100 Nasal Cannula 3.0 02/15/17 17:55 36.3 87 14 112/71 99 Nasal Cannula 3.0 02/15/17 17:25 36.3 88 18 124/92 97 Nasal Cannula 3.0 02/15/17 16:55 Nasal Cannula 3.0 02/15/17 16:55 94 Nasal Cannula 3.0 02/15/17 16:55 36.4 78 14 136/74 94 Nasal Cannula 3.0 02/15/17 16:30 36.3 81 16 153/77 97 Nasal Cannula 3 02/15/17 16:15 36.3 83 16 149/82 97 Nasal Cannula 3 02/15/17 16:05 83 16 155/76 97 Nasal Cannula 3 02/15/17 15:55 84 16 151/81 96 Nasal Cannula 3 02/15/17 15:45 79 16 155/71 100 Nasal Cannula 3 02/15/17 15:37 36.2 86 16 155/77 98 Nasal Cannula 3 Physical Exam General Appearance: no apparent distress Eyes: EOMI Neck: thyroid normal Respiratory/Chest: lungs clear Cardiovascular: regular rate, rhythm Abdomen: normal bowel sounds, non tender, soft Extremities: + pertinent finding (trace edema in the left lower extremity. Bandage in place. No pitting edema noted in the right lower extremity) Neurologic/Psychiatric: no motor/sensory deficits, oriented x 3 Skin: warm/dry Laboratory Results Last 24 Hours Test 02/15/17 10:50 02/16/17 06:48 Urine Color YELLOW Urine Appearance CLEAR Urine pH 5.5 Urine Specific [place] 1.014 Urine Protein NEG Urine Glucose (UA) NEG Urine Ketones NEG Urine Occult Blood NEG Urine Nitrite NEG Urine Bilirubin NEG Urine Urobilinogen NEG Urine Leukocyte Esterase TRACE Urine WBC (Auto) 1-5 /hpf Urine RBC (Auto) 0-4 /hpf Urine Hyaline Casts (Auto) 1-5 /lpf Urine Epithelial Cells (Auto) >30 /lpf Urine Bacteria (Auto) NEG Sodium Level 141 mmol/L Potassium Level 4.5 mmol/L Chloride Level 109 mmol/L Carbon Dioxide Level 26 mmol/L Anion Gap 6.0 mmol/L Blood Urea Nitrogen 12 mg/dl Creatinine 0.72 mg/dl Est Creatinine Clear Calc Drug Dose 70.5 ml/min Estimated GFR () 98.3 Estimated GFR (Non- 84.9 BUN/Creatinine Ratio 16.3 Random Glucose 88 mg/dl Calcium Level 8.4 mg/dl Assessment and Plan This is a 71-year-old female with PMHx of Hypertension, recurrent cellulitis of the lower, extremities, asthma, adrenal insufficiency, spinal stenosis, rheumatoid, arthritis, thyroid disease, mitral valve prolapse, chronic lower extremity edema, irritable bowel syndrome, peripheral vascular disease, and a history of SBO with 4th parastomal revision completed within the past month at [place]. Left knee wound dehiscence s/p surgical repair with Dr. Mercado 02/15-POD #1 -ABX, DVT proph per primary team Parastomal revision s/p SBO-stable gas and stool in ostomy Adrenal insufficiency -given one dose of stress hydrocortisone 20 mg IV -resume outpt dosing upon d/c Hypertension - Resume lisinopril 20 mg daily Hypothyroidism -Cont home medication dosing of levothyroxine 150 g every other day, alternating with 175 g every other day Depression/anxiety -Continue Lexapro 20 mg QAM and 10 mg QPM DVT prophylaxis: Per primary team, teds, SCDs CODE STATUS: Full code Stable for D/C from a medical stand point. The medicine service will sign off. Please contact the [facility] for any further medical concerns.
[2017-02-16 11:18] VITALS: BP 138/77; PULSE 61; TEMP 37; O2SAT 96
[2017-02-16] MEDS ORDERED: RXC5 PO (12:31)
[2017-02-17] MEDS ORDERED: LEVOTHYROXINE 150 MCG TAB PO SCH (06:30)
[2017-05-05] MEDS ORDERED: HYDR200T5 PO (13:34)
[2017-05-05] MEDS ORDERED: nasal spray (13:35)
[2017-05-05] MEDS ORDERED: AMLO2.5T PO (13:35)
[2017-08-25] MEDS ORDERED: BUPR200T2 PO (14:44)
[2017-08-26] MEDS ORDERED: BUPR100T8 PO (12:28)
== END 2017-02-16 14:45 | disposition home or self-care (01) | DRG 908 ==
LOC: ENRESERVDT → ENRESERVTM → C.EDB 04:31 → C.MSW 06:50
PROVIDERS: ADMIT Orthopaedic Surgery Sports Medicine; ATTEND Orthopaedic Surgery
PROC: 0JCP0ZZ Extirpation of Matter from Left Lower Leg Subcutaneous Tissue and Fascia, Open Approach (ICD-10-PCS; principal; 2017-02-15 13:00)
PROC: 0HQLXZZ Repair Left Lower Leg Skin, External Approach (ICD-10-PCS; principal; 2017-02-15 13:00)
PROC: 0J9M0ZZ Drainage of Left Upper Leg Subcutaneous Tissue and Fascia, Open Approach (ICD-10-PCS; principal; 2017-02-15 13:00)
DX: T81.31XA Disruption of external operation (surgical) wound, not elsewhere classified, initial encounter (principal); E27.1 Primary adrenocortical insufficiency; L03.115 Cellulitis of right lower limb; S80.02XA Contusion of left knee, initial encounter; Z96.652 Presence of left artificial knee joint; M06.9 Rheumatoid arthritis, unspecified; D64.9 Anemia, unspecified; I11.9 Hypertensive heart disease without heart failure; J45.909 Unspecified asthma, uncomplicated; E03.9 Hypothyroidism, unspecified; I34.1 Nonrheumatic mitral (valve) prolapse; F32.9 Major depressive disorder, single episode, unspecified; F41.9 Anxiety disorder, unspecified; I73.9 Peripheral vascular disease, unspecified; E66.3 Overweight; Z79.899 Other long term (current) drug therapy; Z79.52 Long term (current) use of systemic steroids; Z87.19 Personal history of other diseases of the digestive system; Z86.19 Personal history of other infectious and parasitic diseases; Z87.01 Personal history of pneumonia (recurrent); Z68.29 Body mass index [BMI] 29.0-29.9, adult; Z93.3 Colostomy status; W18.09XA Striking against other object with subsequent fall, initial encounter; Y93.01 Activity, walking, marching and hiking; Y92.003 Bedroom of unspecified non-institutional (private) residence as the place of occurrence of the external cause; Y99.8 Other external cause status

== ENCOUNTER → 2017-04-21 | Day surgery (SDC) | payer BC ==
[~2017-04-21] VITALS: Ht 162.6 cm; Wt 73.0 kg
[~2017-04-21] MED LIST changes: +AMLO2.5T PO; +CALC-20 PO; -CALC-354 PO; +DALBAVANCIN IV 1,500 MG in DEXTROSE 5% 250ML 250 ML IV SCH; -HYDR2TAB2 PO; +IBUP-1050 PO; +KLOR CON PO; -KLOR-CON 10 PO; -LVNIS40 PO; -ONDA8TAB6 PO; -POTA10TA PO; +RXC5 PO; +SNK PO; -[UNRECOGNIZED DRUG - OTHER]; +nasal spray
[2017-04-21 16:12] VITALS: BP 149/75; PULSE 82; TEMP 37.1; O2SAT 94; Ht 162.6 cm; Wt 73.0 kg
== END | disposition home or self-care (01) ==
LOC: C.ACU 15:25
PROVIDERS: ATTEND Physician Assistant
DX: L03.90 Cellulitis, unspecified (principal)

== ENCOUNTER → 2017-05-05 | Outpatient (CLI) | payer BC ==
[~2017-05-05] MED LIST changes: -DALBAVANCIN IV 1,500 MG in DEXTROSE 5% 250ML 250 ML IV SCH
--- NOTE | 2017-05-05 18:58 | DIAGNOSTIC IMAGING REPORT ---
CHEST 2 VIEWS ROUTINE CLINICAL HISTORY: R05 cough COMPARISON STUDY: 02/15/2017 FINDINGS: The bones soft tissues and hemidiaphragms are normal. The cardiomediastinal silhouette is normal. The lungs are clear. The pulmonary vasculature is normal. Small fixed hiatal hernia. Several old right-sided rib fractures. IMPRESSION: Chronic change. No acute process. The above report was generated using voice recognition software. It may contain grammatical, syntax or spelling errors. Electronically signed by: Harvinder Clemons M.D. 05/05/2017 6:57 PM Dictated Date/Time: 05/05/2017 6:56 PM
== END | disposition home or self-care (01) ==
LOC: C.RAD 18:24
PROVIDERS: ATTEND Family Medicine
DX: R05 Cough (principal); M34.1 CR(E)ST syndrome; R76.8 Other specified abnormal immunological findings in serum

== ENCOUNTER → 2017-05-18 | Outpatient (CLI) | payer BC ==
[~2017-05-18] MED LIST changes: -ACET-1138 PO; -NF656; -RXC5 PO; -SNK PO
--- NOTE | 2017-05-18 16:09 | DIAGNOSTIC IMAGING REPORT ---
LEFT HAND 2 VIEWS CLINICAL HISTORY: Connective tissue disorder. FINDINGS: 3 views of the left hand are obtained. No prior studies are available for comparison at the time of dictation. The skeletal structures are osteopenic. No fracture is seen. Mild to moderate osteoarthritic change with subluxation is seen at the first carpometacarpal articulation. There is degenerative narrowing at the radiocarpal articulation. Osteoarthritis is also seen involving the first metacarpophalangeal as well as interphalangeal joints. The distal interphalangeal joints are involved greater than the proximal. No significant erosive change is identified. Mild soft tissue swelling is suggested in the fingers. IMPRESSION: 1. No acute bony abnormality seen in the left hand. Mild soft tissue swelling is suggested in the fingers. 2. Osteopenia and osteoarthritic change as above. Electronically signed by: Josh Madrigal M.D. 05/18/2017 4:08 PM Dictated Date/Time: 05/18/2017 4:06 PM
--- NOTE | 2017-05-18 16:12 | DIAGNOSTIC IMAGING REPORT ---
RIGHT FOOT MIN 3 VIEWS ROUTINE, LEFT FOOT MIN 3 VIEWS ROUTINE CLINICAL HISTORY: CONNECTIVE TISSUE DISEASE Right. COMPARISON STUDY: None. FINDINGS: No acute fracture or dislocation within the right or left foot. The bones are osteopenic. Bilateral plantar heel spurs. Bilateral pes planus deformities. Severe osteoarthritis at the left first MTP joint. There is also severe osteoarthritis at the right navicular/cuneiform articulation. No erosions identified. IMPRESSION: 1. Diffuse osteopenia. 2. Pes planus deformities bilaterally. 3. Severe osteoarthritis at the left first MTP joint and at the right navicular/cuneiform articulation. Electronically signed by: Shree Arriaga M.D. 05/18/2017 4:11 PM Dictated Date/Time: 05/18/2017 4:08 PM
[2017-05-18 16:46] LABS: BASO % 0.7 %; BASO ABS # 0.04 K/uL (0-0.2); COMPLETE YES; EOS % 0.7 %; HEMATOCRIT 30.5 % (37-47); IG% 0.3 %; LYMPH % 19.4 %; LYMPH ABS # 1.18 K/uL (1.2-3.4); MEAN CELL VOLUME 90.5 fL (80-100); MEAN CORPUSCULAR HEMOGLOBIN 30.3 pg (25-34); MEAN CORPUSCULAR HGB CONC 33.4 g/dl (32-36); MEAN PLATELET VOLUME 9.4 fL (7.4-10.4); NEUT % 68.9 %; PLATELET COUNT 556 K/uL (130-400); RED BLOOD COUNT 3.37 M/uL (4.2-5.4); WHITE BLOOD COUNT 6.09 K/uL (4.8-10.8)
--- NOTE | 2017-05-18 16:50 | DIAGNOSTIC IMAGING REPORT ---
RIGHT HAND MIN 3 VIEWS ROUTINE CLINICAL HISTORY: Connective tissue disease. Elevated sedimentation rate. COMPARISON: None FINDINGS: There is joint space narrowing of the second and third metacarpophalangeal joints with mild subluxation at these articulations. There may be associated erosions. Suspected additional erosions are noted, most evident at the metacarpophalangeal joints. There is chondrocalcinosis within the TFCC. There is mild narrowing of the radiocarpal joint. There is moderate to osteoarthritis of the right first carpometacarpal joint. There is no acute fracture. IMPRESSION: 1. Joint space narrowing with subluxation of the right second and third metacarpophalangeal joints with suspected erosions at several metacarpophalangeal joints. The findings raise the possibility of an inflammatory arthropathy such as rheumatoid arthritis. CPPD arthropathy could appear similar. 2. Moderate to severe osteoarthritis of the right first carpometacarpal joint. 3. Chondrocalcinosis within the TFCC. Electronically signed by: Donavon Manrique M.D. 05/18/2017 4:48 PM Dictated Date/Time: 05/18/2017 3:49 PM
[2017-05-18 17:24] LABS: ALT/SGPT 29 U/L (12-78); AST/SGOT 28 U/L (15-37); BLOOD UREA NITROGEN 18 mg/dl (7-18); BUN/CREATININE RATIO 19.9 (10-20); C-REACTIVE PROTEIN < 0.29 mg/dl (0-0.29); CALCIUM 9.5 mg/dl (8.5-10.1); CARBON DIOXIDE 27 mmol/L (21-32); CHLORIDE 106 mmol/L (98-107); CREATININE 0.88 mg/dl (0.60-1.20); GLUCOSE 90 mg/dl (70-99); POTASSIUM 4.3 mmol/L (3.5-5.1); SODIUM 136 mmol/L (136-145)
[2017-05-18 17:26] LABS: ALKALINE PHOSPHATASE 109 U/L (45-117)
[2017-05-21 21:38] LABS: PARVOVIRUS IgM INDEX 0.4 (<0.9)
== END | disposition home or self-care (01) ==
LOC: C.RAD1850 15:06
PROVIDERS: ATTEND Internal Medicine Rheumatology
DX: L03.115 Cellulitis of right lower limb (principal); R70.0 Elevated erythrocyte sedimentation rate; Z79.899 Other long term (current) drug therapy; M34.1 CR(E)ST syndrome; M85.871 Other specified disorders of bone density and structure, right ankle and foot; M85.872 Other specified disorders of bone density and structure, left ankle and foot; M21.41 Flat foot [pes planus] (acquired), right foot; M21.42 Flat foot [pes planus] (acquired), left foot; M19.071 Primary osteoarthritis, right ankle and foot; M19.072 Primary osteoarthritis, left ankle and foot; M19.042 Primary osteoarthritis, left hand; M85.841 Other specified disorders of bone density and structure, right hand; M18.0 Bilateral primary osteoarthritis of first carpometacarpal joints; M19.041 Primary osteoarthritis, right hand; M11.241 Other chondrocalcinosis, right hand

== ENCOUNTER → 2017-06-10 | Outpatient (CLI) | payer BC ==
[2017-06-10 16:42] LABS: URINE APPEARANCE CLEAR (CLEAR); URINE BILIRUBIN NEG (NEG); URINE COLOR YELLOW; URINE NITRITE NEG (NEG); URINE SPECIFIC GRAVITY 1.021 (1.000-1.030); UROBILINOGEN NEG (NEG)
[2017-06-10 16:55] LABS: MANUAL MICROSCOPIC REQUIRED? NO; REVIEW REQ? NO
== END | disposition home or self-care (01) ==
LOC: C.LABSPEC 15:55
PROVIDERS: ATTEND Internal Medicine Rheumatology

== ENCOUNTER 2017-08-27 11:38 | Emergency (ER) | payer BC ==
[~2017-08-27] VITALS: Ht 160 cm; Wt 76.7 kg
[~2017-08-27 11:38] MED LIST changes: -AMLO2.5T PO; +BUPR100T8 PO; -ESCI10TA17 PO; -nasal spray
[2017-08-27 11:42] VITALS: TEMP 36.7; Ht 160 cm; Wt 76.7 kg
[2017-08-27] MEDS ORDERED: DAPTOmycin IV 500 MG in SODIUM CHLORIDE 0.9% 50ML 50 ML IV STA (12:15)
[2017-08-27] MEDS ORDERED: DAPTOmycin IV 500 MG in SYRINGE 0 ML IV SCH (13:45)
[2017-08-27 13:53] VITALS: BP 114/71; PULSE 96; O2SAT 96
--- NOTE | 2017-08-27 18:19 | EMERGENCY ROOM VISIT NOTE ---
History Report prepared by Miguel: Pinky Hernandez Under the Supervision of: Dr. Efrain Robertson M.D. First contact with patient: 11:43 Chief Complaint: OTHER COMPLAINT Stated Complaint: RETURNING FOR IV PER DR RODRIGUEZ History of Present Illness The patient is a 71 year old female who presents to the Emergency Room with complaints of a re-check today. The patient was given Dalvance 2 days ago. The patient came in yesterday with fevers and worsening leg pain. She was diagnosed with cellulitis, which has been a recurrent issue. She was also given Daptomycin and was brought back today for a re-check. The patient denies spiking fevers today. Source of History: patient Onset: today Position: leg (bilateral) Quality: other (re-check) Timing: constant Associated Symptoms: No fevers Review of Systems See HPI for pertinent positives and negatives. A total of six systems were reviewed and were otherwise negative. Past Medical & Surgical Medical Problems: (1) Abdominal hernia (2) [place]'s disease (3) Asthma (4) Benign hypertension (5) Bilateral cellulitis of lower leg (6) CELLULITIS NOS (7) ILEOSTOMY STATUS (8) Lymphedema of left lower extremity (9) Lymphedema of right lower extremity (10) MINERALOCORTICOID DEFICIENCY (11) PNA (pneumonia) (12) Small bowel obstruction Surgical Problems: (1) Post-operative state (2) Post-operative state (3) S/P knee replacement Family History FH: heart disease Social History Smoking Status: Former Smoker Alcohol Use: none Drug Use: none Marital Status: Housing Status: lives with family Occupation Status: unemployed Current/Historical Medications Scheduled Bupropion (Wellbutrin Sr), 100 MG PO BID Calcium Carbonate-Vitamin D (Calcium 600 + D), 1 CAP PO BID Cholecalciferol (Vitamin D), 2,000 UNITS PO BID Dextroamphetamine Sulfate (Dextroamphetamine Sulfate), 10 MG PO TID Escitalopram Oxalate (Lexapro), 10 MG PO QAM Fludrocortisone Acetate (Florinef), 0.1 MG PO QAM Hydrocortisone (Cortef), 20 MG PO DAILY@0800 Hydrocortisone (Cortef), 10 MG PO DAILY@1600 Hydroxychloroquine Sulfate (Plaquenil), 2 TAB PO PM L-Methylfolate W/ Vitamin B6-V (Foltx), 1 TAB PO QAM Levothyroxine Sodium (Synthroid), 150 MCG PO Q2D Levothyroxine Sodium (Synthroid), 175 MCG PO Q2D Lisinopril (Zestril), 20 MG PO QAM Polysaccharide Iron Complex (Iferex 150), 1 CAP PO QAM [Klor-Con M10], 20 MEQ PO BID Scheduled PRN Diphenoxylate W/ Atropine (Lomotil), 1-2 TAB PO 4-6 X PRN for bowel motility Ibuprofen (Advil), 400 MG PO TID PRN for Pain Ipratropium-Albuterol (Combivent Respimat), 1 PUFFS INH QID PRN for ASTHMA Loperamide Hcl (Imodium), 4 MG PO TID PRN for Diarrhea Allergies Coded Allergies: Sulfa Antibiotics (Verified Allergy, Intermediate, RASH, 08/27/17) UNKNOWN IF THIS IS TO ANITBIOTICS OR OTHER SULFA Amoxicillin (Verified Adverse Reaction, Mild, gi upset, 08/27/17) Clavulanic Acid (Verified Adverse Reaction, Mild, nausea & vomiting, ) Erythromycin (Verified Adverse Reaction, Mild, gi upset, 08/27/17) Physical Exam Vital Signs Date Time Temp Pulse Resp B/P (MAP) Pulse Ox O2 Delivery O2 Flow Rate FiO2 08/27/17 13:53 96 20 114/71 96 08/27/17 13:32 96 20 114/71 96 Room Air 08/27/17 11:42 36.7 98 20 131/80 94 Room Air Physical Exam GENERAL: Awake, alert, well-appearing, in no distress HENT: Normocephalic, atraumatic. EYES: Normal conjunctiva. Sclera non-icteric. NECK: Supple. RESPIRATORY: Clear to auscultation. CARDIAC: Regular rate, normal rhythm. Extremities warm and well perfused. Pulses equal. ABDOMEN: Soft, non-distended. No tenderness to palpation. No rebound or guarding. No masses. MUSCULOSKELETAL: No joint edema. Calves are equal size bilaterally and non- tender. Legs are less swollen. Redness has decreased, but is still slightly more prominent on her right leg compared to the left. NEURO: Normal sensorium. No sensory or motor deficits noted. SKIN: Cellulitis as above. Medical Decision & Procedures Medications Administered Medications (Trade) Dose Ordered Sig/Hector Route Start Time Stop Time Status Last Admin Dose Admin Daptomycin 500 mg/ Syringe 10 ml @ 5 mls/min 1345 IV 08/27/17 13:45 08/27/17 13:46 DC 08/27/17 13:33 5 MLS/MIN ED Course 1212: The patient was evaluated in room C10. A complete history and physical exam was performed. 1215: Ordered Daptomycin 500 mg/Sodium Chloride 60 ml @ 100 mls/hr IV. 1240: I reevaluated the patient. Discussed results and discharge instructions: She verbalized understanding and agreement. The patient is ready for discharge. Medical Decision Triage Nursing notes reviewed and agree them. Additional history obtained from the family. The patient's history was concerning for swelling and redness of the skin. Differential diagnosis: Etiologies such as cellulitis, DVT, necrotizing fasciitis, abscess, MRSA infection, dermatitis, drug eruption, as well as others were entertained.. Physical examination: The physical examination was consistent with improving cellulitis ER treatment provided: IV daptomycin This appears to be isolated cellulitis that is improving. The patient had are received Dalvance and daptomycin yesterday. She was given a dose of daptomycin today. No additional antibiotics will be necessary Unless symptoms worsen. She will follow-up with infectious disease this week. By the evaluation outlined above emergent etiologies such as abscess, necrotizing fasciitis, DVT, as well as others were deemed relatively unlikely. The patient and were informed about the findings as listed above. All questions were answered and they were pleased with the treatment. Return instructions were outlined and the patient was discharged in stable condition. Referral: The patient was referred back to infectious disease for a recheck of the current condition. Medication Reconcilliation Current Medication List: was personally reviewed by me Blood Pressure Screening Patient's blood pressure: Normal blood pressure Impression Primary Impression: Cellulitis Scribe Attestation The scribe's documentation has been prepared under my direction and personally reviewed by me in its entirety. I confirm that the note above accurately reflects all work, treatment, procedures, and medical decision making performed by me. Departure Information Dispostion Home / Self-Care Referrals Con Tapia M.D. (PCP) Forms HOME CARE DOCUMENTATION FORM, IMPORTANT VISIT INFORMATION, WORK / SCHOOL INSTRUCTIONS Patient Instructions My [facility] Additional Instructions Follow-up with Dr. Soto on Tuesday. Continue current medications. Return to the ER immediately for spreading redness, fevers, pus-like drainage, severe pain, or as needed.
== END 2017-08-27 13:53 | disposition home or self-care (01) ==
LOC: C.EDB 11:39 → C.EDC 13:53
DX: L03.119 Cellulitis of unspecified part of limb (principal); I10 Essential (primary) hypertension; J45.909 Unspecified asthma, uncomplicated; K56.609 Unspecified intestinal obstruction, unspecified as to partial versus complete obstruction; Z93.2 Ileostomy status; Z86.19 Personal history of other infectious and parasitic diseases; Z87.891 Personal history of nicotine dependence; Z79.899 Other long term (current) drug therapy; Z98.890 Other specified postprocedural states; Z82.49 Family history of ischemic heart disease and other diseases of the circulatory system